=== PATIENT | female | born 1965 | race Caucasian/White ===

== ENCOUNTER → 2018-07-29 07:59 | Outpatient (CLI) | payer OTHER, SELFPAY ==
[2018-07-29 11:14] LABS: Vitamin D,25 Hydroxy 24.2 ng/mL (29.95-100.01)
[2018-07-29 11:16] LABS: Microalbumin,Random Urine 5.8 mg/L (NO RANGE EST.)
[2018-07-29 11:22] LABS: ALB/GLOB Ratio 1.1 RATIO (0.9-2.4); AST(SGOT) 17 U/L (15-37); Alanine Aminotransfer ALT/SGPT 40 U/L (13-56); Albumin, Serum 3.9 g/dL (3.2-5.0); Alkaline Phosphatase 79 U/L (45-117); Anion Gap 9 (5-15); BUN 13 mg/dL (7-18); BUN/Creat Ratio 22.2 RATIO (10-20); Calcium,Total 8.9 mg/dL (8.5-10.1); Chloride 102 mmol/L (98-107); Creatinine, Serum 0.58 mg/dL (0.55-1.02); EST Glomerular Filtration Rate 114 mL/min (>60); Est Glom Filt Rate - Afr Amer 137 mL/min (>60); Globulin 3.7 g/dL (2.2-4.2); Glucose 236 mg/dL (74-106); Potassium 4.1 mmol/L (3.5-5.1); Protein, Total 7.6 g/dL (6.4-8.2); Sodium Level 136 mmol/L (136-145); Thyroid Stim Hormone (TSH) 1.22 uIU/mL (0.358-3.74)
[2018-07-29 11:43] LABS: Hemoglobin A1c 10.7 % (4.2-6.3)
[2018-07-31 13:52] LABS: C-Peptide 2.9 ng/mL (1.1-4.4)
== END ==
PROVIDERS: Family Provider Family Medicine; PCP Family Medicine; Referring Provider Internal Medicine Endocrinology, Diabetes & Metabolism; Visit Provider Internal Medicine Endocrinology, Diabetes & Metabolism
DX: E11.9 Type 2 diabetes mellitus without complications (principal); E55.9 Vitamin D deficiency, unspecified
CPT/HCPCS: 36415; 80053; 82043; 82306; 82570; 83036; 84443; 84681

== ENCOUNTER → 2018-08-04 07:34 | Outpatient (CLI) | payer OTHER, SELFPAY | PROVIDERS: Family Provider Family Medicine; PCP Family Medicine; Referring Provider Internal Medicine Endocrinology, Diabetes & Metabolism; Visit Provider Internal Medicine Endocrinology, Diabetes & Metabolism | DX: E11.65 Type 2 diabetes mellitus with hyperglycemia (principal) | CPT/HCPCS: 36415; 82533 ==

== ENCOUNTER → 2019-01-07 10:19 | Outpatient (CLI) | payer OTHER, SELFPAY ==
[2017-06-06 12:36] VITALS: BMI 32.1
[2019-01-07 11:38] LABS: Hemoglobin A1c 7.1 % (4.2-6.3)
[2019-01-07 12:01] LABS: ALB/GLOB Ratio 1.1 RATIO (0.9-2.4); AST(SGOT) 16 U/L (15-37); Alanine Aminotransfer ALT/SGPT 29 U/L (13-56); Albumin, Serum 3.9 g/dL (3.2-5.0); Alkaline Phosphatase 78 U/L (45-117); Anion Gap 6 (5-15); BUN 16 mg/dL (7-18); BUN/Creat Ratio 23.9 RATIO (10-20); Calcium,Total 8.8 mg/dL (8.5-10.1); Chloride 107 mmol/L (98-107); Cholesterol 170 mg/dL (200); Creatinine, Serum 0.67 mg/dL (0.55-1.02); EST Glomerular Filtration Rate 97 mL/min (>60); Est Glom Filt Rate - Afr Amer 117 mL/min (>60); Globulin 3.6 g/dL (2.2-4.2); Glucose 150 mg/dL (74-106); High Density Lipoprotein 57 mg/dL; Potassium 4.9 mmol/L (3.5-5.1); Protein, Total 7.5 g/dL (6.4-8.2); Sodium Level 143 mmol/L (136-145); Thyroid Stim Hormone (TSH) 1.11 uIU/mL (0.358-3.74); Triglycerides 87 mg/dL; Very Low Density Lipoprotein 17 mg/dL (5-40)
[2019-01-09 09:22] LABS: Vitamin D,25 Hydroxy 68.5 ng/mL (29.95-100.01)
== END ==
PROVIDERS: Family Provider Family Medicine; PCP Family Medicine; Referring Provider Internal Medicine Endocrinology, Diabetes & Metabolism; Visit Provider Internal Medicine Endocrinology, Diabetes & Metabolism
DX: E11.65 Type 2 diabetes mellitus with hyperglycemia (principal)
CPT/HCPCS: 36415; 80053; 80061; 82306; 83036; 84443

== ENCOUNTER → 2019-04-14 07:18 | Outpatient (CLI) | payer OTHER, SELFPAY ==
[2017-06-06 12:36] VITALS: BMI 32.1
[2019-04-14 08:22] LABS: Hemoglobin A1c 8.6 % (4.2-6.3)
[2019-04-14 08:46] LABS: AST(SGOT) 15 U/L (15-37); Alanine Aminotransfer ALT/SGPT 28 U/L (13-56); Albumin, Serum 3.5 g/dL (3.2-5.0); Alkaline Phosphatase 78 U/L (45-117); Anion Gap 9 (5-15); BUN 16 mg/dL (7-18); BUN/Creat Ratio 26.1 RATIO (10-20); Calcium,Total 8.7 mg/dL (8.5-10.1); Chloride 106 mmol/L (98-107); Creatinine, Serum 0.61 mg/dL (0.55-1.02); EST Glomerular Filtration Rate 107 mL/min (>60); Est Glom Filt Rate - Afr Amer 130 mL/min (>60); Globulin 3.6 g/dL (2.2-4.2); Glucose 197 mg/dL (74-106); Potassium 4.3 mmol/L (3.5-5.1); Protein, Total 7.1 g/dL (6.4-8.2); Sodium Level 140 mmol/L (136-145)
== END ==
PROVIDERS: Family Provider Family Medicine; PCP Family Medicine; Referring Provider Internal Medicine Endocrinology, Diabetes & Metabolism; Visit Provider Internal Medicine Endocrinology, Diabetes & Metabolism
DX: E11.65 Type 2 diabetes mellitus with hyperglycemia (principal)
CPT/HCPCS: 36415; 80053; 83036

== ENCOUNTER → 2019-07-15 09:47 | Outpatient (CLI) | payer OTHER, SELFPAY ==
[2017-06-06 12:36] VITALS: BMI 32.1
[2019-07-15 11:03] LABS: ALB/GLOB Ratio 0.9 RATIO (0.9-2.4); AST(SGOT) 15 U/L (15-37); Alanine Aminotransfer ALT/SGPT 30 U/L (13-56); Albumin, Serum 3.6 g/dL (3.2-5.0); Alkaline Phosphatase 96 U/L (45-117); Anion Gap 10 (5-15); BUN 11 mg/dL (7-18); BUN/Creat Ratio 15.3 RATIO (10-20); Calcium,Total 8.9 mg/dL (8.5-10.1); Chloride 104 mmol/L (98-107); Cholesterol 189 mg/dL (200); Creatinine, Serum 0.72 mg/dL (0.55-1.02); EST Glomerular Filtration Rate 89 mL/min (>60); Est Glom Filt Rate - Afr Amer 108 mL/min (>60); Glucose 295 mg/dL (74-106); High Density Lipoprotein 56 mg/dL; Potassium 4.3 mmol/L (3.5-5.1); Protein, Total 7.6 g/dL (6.4-8.2); Sodium Level 140 mmol/L (136-145); Triglycerides 112 mg/dL; Very Low Density Lipoprotein 22 mg/dL (5-40)
[2019-07-15 11:06] LABS: Hemoglobin A1c 9.8 % (4.2-6.3)
== END ==
PROVIDERS: Family Provider Family Medicine; PCP Family Medicine; Referring Provider Internal Medicine Endocrinology, Diabetes & Metabolism; Visit Provider Internal Medicine Endocrinology, Diabetes & Metabolism
DX: M79.7 Fibromyalgia (principal)
CPT/HCPCS: 36415; 80053; 80061; 83036

== ENCOUNTER → 2019-11-21 07:53 | Outpatient (CLI) | payer OTHER, SELFPAY ==
[2017-06-06 12:36] VITALS: BMI 32.1
[2019-11-21 08:39] LABS: Hemoglobin A1c 7.7 % (4.2-6.3)
[2019-11-21 09:21] LABS: AST(SGOT) 12 U/L (15-37); Alanine Aminotransfer ALT/SGPT 28 U/L (13-56); Albumin, Serum 3.8 g/dL (3.2-5.0); Alkaline Phosphatase 79 U/L (45-117); Anion Gap 5 (5-15); BUN 16 mg/dL (7-18); Calcium,Total 9.5 mg/dL (8.5-10.1); Chloride 104 mmol/L (98-107); Cholesterol 194 mg/dL (200); Creatinine, Serum 0.73 mg/dL (0.55-1.02); EST Glomerular Filtration Rate 88 mL/min (>60); Est Glom Filt Rate - Afr Amer 107 mL/min (>60); Glucose 174 mg/dL (74-106); High Density Lipoprotein 54 mg/dL; Potassium 4.7 mmol/L (3.5-5.1); Protein, Total 7.8 g/dL (6.4-8.2); Sodium Level 138 mmol/L (136-145); Thyroid Stim Hormone (TSH) 2.05 uIU/mL (0.358-3.74); Triglycerides 104 mg/dL; Very Low Density Lipoprotein 21 mg/dL (5-40)
== END ==
PROVIDERS: PCP Family Medicine; Referring Provider Internal Medicine Endocrinology, Diabetes & Metabolism; Visit Provider Internal Medicine Endocrinology, Diabetes & Metabolism
DX: I10 Essential (primary) hypertension (principal); E11.65 Type 2 diabetes mellitus with hyperglycemia
CPT/HCPCS: 36415; 80053; 80061; 83036; 84443

== ENCOUNTER → 2020-03-13 09:29 | Outpatient (CLI) | payer OTHER, SELFPAY ==
[2020-03-13 11:01] LABS: ALB/GLOB Ratio 0.9 RATIO (0.9-2.4); AST(SGOT) 24 U/L (15-37); Alanine Aminotransfer ALT/SGPT 45 U/L (13-56); Albumin, Serum 3.8 g/dL (3.2-5.0); Alkaline Phosphatase 64 U/L (45-117); Anion Gap 6 (5-15); BUN 19 mg/dL (7-18); Calcium,Total 9.2 mg/dL (8.5-10.1); Chloride 103 mmol/L (98-107); Creatinine, Serum 0.63 mg/dL (0.55-1.02); EST Glomerular Filtration Rate 103 mL/min (>60); Est Glom Filt Rate - Afr Amer 125 mL/min (>60); Globulin 4.1 g/dL (2.2-4.2); Glucose 146 mg/dL (74-106); Potassium 4.2 mmol/L (3.5-5.1); Protein, Total 7.9 g/dL (6.4-8.2); Sodium Level 137 mmol/L (136-145)
[2020-03-13 11:25] LABS: Hemoglobin A1c 8.1 % (3.8-5.6)
== END ==
PROVIDERS: PCP Family Medicine; Referring Provider Internal Medicine Endocrinology, Diabetes & Metabolism; Visit Provider Internal Medicine Endocrinology, Diabetes & Metabolism
DX: I10 Essential (primary) hypertension (principal)
CPT/HCPCS: 36415; 80053; 83036

== ENCOUNTER → 2020-04-01 10:30 | Outpatient (CLI) | payer OTHER, SELFPAY ==
--- NOTE | 2020-04-01 10:38 | MRI_ITS ---
STUDY: MRI RIGHT SHOULDER REASON FOR EXAM: Chronic right shoulder, scapular, proximal humeral pain for 20 years, limited range of motion, no specific injury. TECHNIQUE: Standardized fat and water weighted pulse sequences were obtained in all 3 orthogonal planes. COMPARISON: None. FINDINGS: There is mild supraspinatus tendinosis and a very small intrasubstance partial thickness tear of the distal anterior supraspinatus tendon at the greater tuberosity insertion (T2 coronal image 15) measuring 0.2 cm in length. Normal infraspinatus tendon. Normal subscapularis tendon. Normal teres minor tendon. Normal supraspinatus muscle. Normal infraspinatus muscle. Normal subscapularis muscle. Normal teres minor muscle. Normal glenohumeral articulation. There is mild bone edema and cystic change of the greater tuberosity. Normal biceps labral complex. Normal intracapsular long biceps tendon. Normal labrum. Normal capsulo- ligamentous complex. There is no substantial acromioclavicular arthrosis. There is a Type II morphology (curved), with an anterior downsloping orientation. There is no subacromial-subdeltoid bursal fluid. Normal visualized coracohumeral and coracoacromial ligaments. Normal deltoid muscle. Normal trapezius muscle. MRI/Upper Ext Joint Only(Routine) IMPRESSION: Very small intrasubstance partial-thickness tear and mild tendinosis of the supraspinatus tendon. Electronically Signed: Dustin Wells MD at 11:31 EDT Tel , Service support ,
== END ==
PROVIDERS: PCP Family Medicine; Referring Provider Family Medicine; Visit Provider Family Medicine
DX: M25.511 Pain in right shoulder (principal)
CPT/HCPCS: 73221

== ENCOUNTER → 2020-07-10 09:31 | Outpatient (CLI) | payer OTHER, SELFPAY ==
[2020-07-10 10:48] LABS: Microalbumin,Random Urine < 5.0 mg/L (NO RANGE EST.)
[2020-07-10 10:58] LABS: Vitamin D,25 Hydroxy 40.6 ng/mL
[2020-07-10 11:07] LABS: Hemoglobin A1c 6.4 % (3.8-5.6)
[2020-07-10 11:09] LABS: ALB/GLOB Ratio 0.9 RATIO (0.9-2.4); AST(SGOT) 11 U/L (15-37); Alanine Aminotransfer ALT/SGPT 23 U/L (13-56); Albumin, Serum 3.8 g/dL (3.2-5.0); Alkaline Phosphatase 73 U/L (45-117); Anion Gap 6 (5-15); BUN 21 mg/dL (7-18); BUN/Creat Ratio 33.1 RATIO (10-20); Calcium,Total 9.3 mg/dL (8.5-10.1); Chloride 104 mmol/L (98-107); Cholesterol 210 mg/dL (200); Creatinine, Serum 0.63 mg/dL (0.55-1.02); EST Glomerular Filtration Rate 103 mL/min (>60); Est Glom Filt Rate - Afr Amer 124 mL/min (>60); Globulin 4.4 g/dL (2.2-4.2); Glucose 148 mg/dL (74-106); High Density Lipoprotein 57 mg/dL; Potassium 4.3 mmol/L (3.5-5.1); Protein, Total 8.2 g/dL (6.4-8.2); Sodium Level 137 mmol/L (136-145); Thyroid Stim Hormone (TSH) 2.04 uIU/mL (0.358-3.74); Triglycerides 131 mg/dL; Very Low Density Lipoprotein 26 mg/dL (5-40)
== END ==
PROVIDERS: PCP Family Medicine; Referring Provider Internal Medicine Endocrinology, Diabetes & Metabolism; Visit Provider Internal Medicine Endocrinology, Diabetes & Metabolism
DX: E11.65 Type 2 diabetes mellitus with hyperglycemia (principal); I10 Essential (primary) hypertension; M79.7 Fibromyalgia; E55.9 Vitamin D deficiency, unspecified
CPT/HCPCS: 36415; 80053; 80061; 82043; 82306; 83036; 84443

== ENCOUNTER 2020-08-26 06:44 | Day surgery (SDC) | payer OTHER, SELFPAY ==
[2020-08-26 07:16] VITALS: BP 126/80; PULSE 88; RESP 16; TEMP 36.9; O2SAT 97; BMI 31.1
[2020-08-26] MEDS: Lactated Ringers 1,000 ML 100 ML IV (07:39)
[2020-08-26 07:45] LABS: Bedside Glucose 184 mg/dL (70-110)
--- NOTE | 2020-08-26 08:10 | RAD_ITS ---
PROCEDURE: Right C4-C7 cervical facet injection. DATE OF EXAMINATION: 08/26/2020. INDICATION: Female, 55 years old. Chronic neck pain. FLUOROSCOPY TIME (if supplied): (9.8 seconds) minutes/seconds. 4 intraoperative views were obtained for right C4-C7 facet joint injection. RAD/Cerv Spine 4 or 5 Views IMPRESSION: Intraoperative imaging provided for right C4-C7 facet joint injection. Electronically Signed: Juan Carlos Sen, at 9:01 EST , Service support ,
[2020-08-26] MEDS: Bupivacaine 0.25% 30 ML Vial (08:28)
[2020-08-26] MEDS: MethylPREDNISolone Acetate 40 MG/ML Vial IM (08:28)
[2020-08-26 08:35] VITALS: BP 126/80; BP 94/68; PULSE 87; RESP 16; TEMP 36.8; O2SAT 96
[2020-08-26 08:40] VITALS: BP 126/80; BP 94/68; PULSE 84; RESP 16; O2SAT 96
[2020-08-26 08:45] VITALS: BP 104/72; BP 126/80; PULSE 84; RESP 16; O2SAT 97
[2020-08-26 08:50] VITALS: BP 103/72; BP 126/80; PULSE 83; RESP 16; TEMP 36.4; O2SAT 96
[2020-08-26 09:05] VITALS: BP 126/80
--- NOTE | 2020-08-26 14:32 | OP.PCM_ITS ---
Report of Operation Date of Procedure: 08/26/20 Description of Surgical Findings:: PREOPERATIVE DIAGNOSIS: Cervical spondylosis, cervical degenerative disc disease, cervical facet arthropathy POSTOPERATIVE DIAGNOSIS: Cervical spondylosis, cervical degenerative disc disease, cervical facet arthropathy PROCEDURE PERFORMED: Right-sided cervical facet steroid injection, C4, C5, C6, and C7. ANESTHESIA: MAC. BLOOD LOSS: Minimal. COMPLICATIONS: None. DESCRIPTION OF PROCEDURE: History and physical of today was reviewed. Risks and benefits of the procedure were explained. The patient understood and agreed to proceed. Informed consent was obtained. IV inserted per routine protocol. The patient was taken to the operating room and placed in the prone position with a pillow positioned underneath the chest. The neck area was prepped and draped in a sterile fashion using iodine x3. Under fluoroscopy guidance on an AP view, the C4 through C7 vertebral bodies were visualized at approximately 10- degree angle, starting on the Right C4, ending on the Right C7, passing through the C5 and C6. Using a 25-gauge 3-1/2-inch spinal needle, the needle was advanced via the skin. The tip of the needle was maneuvered and directed towards the epiphyseal junction of each corresponding vertebra. Once the tip of the needle was at the vicinity of the medial branch, the needle was pulled approximately 2 mm off the bone. After negative aspiration of blood or CSF and confirmation on AP, oblique as well as lateral view, a total of 4 mL of preservative-free 0.25% Marcaine with 80 mg of Depo-Medrol was injected in divided doses between those four levels. The needles were then removed intact. The patient experienced no sign or symptoms of intrathecal or intravascular injection. The patient experienced no paresthesia. The procedure was completed without any apparent difficulty or any complications. The patient appeared to tolerate it well. ASSESSMENT AND PLAN: This is a 55-year-old female with cervical spondylosis, cervical degenerative disc disease, cervical facet arthropathy status post right-sided cervical facet steroid injection C4-C7, patient will continue her current medications, patient will follow up in approximately 2 weeks for reevaluation.
== END 2020-08-26 09:18 | disposition home or self-care (01) ==
LOC: SDC 06:44 → AC 06:47
PROVIDERS: PCP Family Medicine; Referring Provider Anesthesiology Pain Medicine; Visit Provider Anesthesiology Pain Medicine
PROC: 3E0U3BZ Introduction of Anesthetic Agent into Joints, Percutaneous Approach (ICD-10-PCS; CPT 64490; principal; 2020-08-26 08:05)
DX: M47.812 Spondylosis without myelopathy or radiculopathy, cervical region (principal); M50.30 Other cervical disc degeneration, unspecified cervical region; M46.92 Unspecified inflammatory spondylopathy, cervical region; G89.29 Other chronic pain; I10 Essential (primary) hypertension; E11.9 Type 2 diabetes mellitus without complications; Z79.4 Long term (current) use of insulin; Z86.73 Personal history of transient ischemic attack (TIA), and cerebral infarction without residual deficits
CPT/HCPCS: 01992; 64491; 64492; 64490; 72050; 82962; J7120

== ENCOUNTER → 2020-12-16 08:19 | Outpatient (CLI) | payer OTHER, SELFPAY ==
[2020-12-16 09:11] LABS: Hemoglobin A1c 7.7 % (3.8-5.6)
[2020-12-16 09:24] LABS: ALB/GLOB Ratio 1.1 RATIO (0.9-2.4); AST(SGOT) 15 U/L (15-37); Alanine Aminotransfer ALT/SGPT 30 U/L (13-56); Alkaline Phosphatase 67 U/L (45-117); Anion Gap 5 (5-15); BUN 17 mg/dL (7-18); BUN/Creat Ratio 24.7 RATIO (10-20); Calcium,Total 9.4 mg/dL (8.5-10.1); Chloride 102 mmol/L (98-107); Creatinine, Serum 0.69 mg/dL (0.55-1.02); EST Glomerular Filtration Rate 93 mL/min (>60); Est Glom Filt Rate - Afr Amer 113 mL/min (>60); Globulin 3.8 g/dL (2.2-4.2); Glucose 196 mg/dL (74-106); Potassium 3.8 mmol/L (3.5-5.1); Protein, Total 7.8 g/dL (6.4-8.2); Sodium Level 138 mmol/L (136-145); Thyroid Stim Hormone (TSH) 2.09 uIU/mL (0.358-3.74)
== END ==
PROVIDERS: PCP Family Medicine; Referring Provider Internal Medicine Endocrinology, Diabetes & Metabolism; Visit Provider Internal Medicine Endocrinology, Diabetes & Metabolism
DX: E11.65 Type 2 diabetes mellitus with hyperglycemia (principal)
CPT/HCPCS: 36415; 80053; 83036; 84443

== ENCOUNTER → 2021-01-02 17:16 | Outpatient (CLI) | payer OTHER, SELFPAY ==
[2021-01-02 17:30] LABS: Hematocrit 46.7 % (37-47); Hemoglobin 15.5 g/dL (12.0-15.0); Mean Corp Hgb Conc 33.2 g/dL (32-36); Mean Corpuscular Hgb 29.4 pg (27.0-32.0); Mean Corpuscular Volume 88.4 fL (81-99); Mean Platelet Vol. 9.3 fl (6.2-12.0); Platelet Count 395 K/mm3 (150-450); RBC Distribution Width CV 12.4 % (11.6-14.6); RBC Distribution Width SD 40.9 fl (35.1-43.9); Red Blood Count 5.28 M/mm3 (4.2-5.4); White Blood Count 10.4 K/mm3 (4.4-11.0)
[2021-01-02 18:03] LABS: Free T3 3.1 pg/mL (2.18-3.98)
== END ==
PROVIDERS: PCP Family Medicine; Referring Provider Family Medicine; Visit Provider Family Medicine
DX: E04.1 Nontoxic single thyroid nodule (principal)
CPT/HCPCS: 36415; 84436; 84481; 85027

== ENCOUNTER → 2021-03-19 | Outpatient (CLI) | payer OTHER, SELFPAY | END | disposition home or self-care (01) | PROVIDERS: PCP Family Medicine; Referring Provider Nurse Practitioner Family; Visit Provider Nurse Practitioner Family | DX: R30.0 Dysuria (principal) | CPT/HCPCS: 87086; 87088 ==

== ENCOUNTER → 2021-04-02 13:28 | Outpatient (CLI) | payer OTHER, SELFPAY ==
--- NOTE | 2021-04-02 13:31 | US_ITS ---
STUDY: THYROID ULTRASOUND REASON FOR EXAM: Female, 55 years old. Thyroid Nodule TECHNIQUE: Ultrasound evaluation of the thyroid was performed with real-time and static choi-scale imaging. COMPARISON: None. FINDINGS: RIGHT LOBE: The right lobe of the thyroid gland measures 4.3 x 1.5 x 1.9 cm. There is a homogeneous echotexture. Several small sub-5 mm thyroid cysts, likely colloid cysts. LEFT LOBE: The left lobe of the thyroid gland measures 4.1 x 1.3 x 1.8 cm. There is a homogeneous echotexture. Several small sub-5 mm cyst, likely colloid cysts. ISTHMUS: The isthmus measures 3 mm. The regional lymph nodes are normal. US/Thyroid IMPRESSION: Small sub-5 mm thyroid cysts bilaterally, likely colloid cysts. Otherwise unremarkable. Electronically Signed: Leo Gimenez DO at 1:55 EDT Tel , Service support ,
== END ==
PROVIDERS: PCP Family Medicine; Referring Provider Family Medicine; Visit Provider Family Medicine
DX: E04.1 Nontoxic single thyroid nodule (principal)
CPT/HCPCS: 76536

== ENCOUNTER → 2021-04-09 11:58 | Outpatient (CLI) | payer OTHER, SELFPAY ==
--- NOTE | 2021-04-09 12:11 | RAD_ITS ---
STUDY: X-RAY - PELVIS REASON FOR EXAM: Female, 55 years old. PSORIATIC ARTHROPATHY TECHNIQUE: One view of the pelvis was obtained. COMPARISON: None. FINDINGS: There is a non-specific bowel gas pattern. Normal visualized soft tissue structures. Normal bilateral iliac wings, sacroiliac joints and visualized sacrum. Normal visualized bilateral superior and inferior pubic rami. Normal pubic symphysis. Normal ischial tuberosities. Normal visualized right femoral head. Normal right acetabulum. Normal right hip joint. Normal visualized left femoral head. Normal left acetabulum. Normal left hip joint. RAD/Pelvis 1 or 2 Views IMPRESSION: Normal x-ray examination of the pelvis. Electronically Signed: Juan Carlos Sen MD at 15:24 EDT , Service support ,
--- NOTE | 2021-04-09 12:16 | US_ITS ---
STUDY: ABDOMINAL ULTRASOUND - RIGHT UPPER QUADRANT REASON FOR VISIT: Female, 55 years old ELEVATED ENZYMES -- S/P CHOLECYSTECTOMY TECHNIQUE: Ultrasound evaluation of the right upper quadrant was performed with real-time and static choi-scale imaging. TECHNICAL QUALITY: Adequate. COMPARISON: None. FINDINGS: Liver: The liver measures 14.7 cm. There is increased echogenicity consistent with fatty infiltration. The bile ducts are within normal limits. There is hepatic color flow. The direction of portal flow is hepatopetal. There is no demonstrated mass lesion. Gallbladder: The patient is status post cholecystectomy. Common Bile Duct (C.B.D.): The common bile duct measures 2.9 mm. Pancreas: Normal size of the head, body and tail of the pancreas. There is normal echogenicity of the pancreas. There is no demonstrated pancreatic mass or cyst. Right Kidney: Normal size of the right kidney. The right kidney measures 12 cm x 6.3 cm x 5.3 cm. Normal renal cortex. The right cortex measures cm. There is no demonstrated renal mass or cyst. There is no right hydronephrosis. US/Liver IMPRESSION: Fatty infiltration of the liver. The patient is status post cholecystectomy. Electronically Signed: Juan Carlos Sen MD at 13:19 EDT , Service support ,
[2021-04-09 13:44] LABS: Absolute Lymphocyte Count 2.67 X10^3/uL (0.83-4.51); Absolute Neutrophil Count 5.5 X10^3/uL (2.0-7.7); Basophil# 0.07 X10^3/uL; Basophil% 0.8 % (0-1); Eosinophils% 2.2 % (0-5); Hematocrit 46.2 % (37-47); Hemoglobin 15.1 g/dL (12.0-15.0); Lymphocyte # 2.67 X10^3/ul (0.83-4.51); Mean Corp Hgb Conc 32.7 g/dL (32-36); Mean Corpuscular Hgb 28.8 pg (27.0-32.0); Mean Corpuscular Volume 88.2 fL (81-99); Mean Platelet Vol. 9.7 fl (6.2-12.0); Monocyte# 0.77 X10^3/uL; Monocyte% 8.4 % (0-10); NRBC Flagged by Analyzer 0 % (0-5); Neutrophil # 5.45 X10^3/uL (2.7-7.7); Neutrophil % 59.2 % (47-70); Platelet Count 342 K/mm3 (150-450); RBC Distribution Width CV 12.6 % (11.6-14.6); RBC Distribution Width SD 40.6 fl (35.1-43.9); Red Blood Count 5.24 M/mm3 (4.2-5.4); White Blood Count 9.2 K/mm3 (4.4-11.0)
[2021-04-09 13:50] LABS: Erythrocyte Sedimentation Rate 6 mm/hr (0-30)
[2021-04-09 13:59] LABS: Hemoglobin A1c 10.1 % (3.8-5.6)
[2021-04-09 14:04] LABS: Microalbumin,Random Urine 5.7 mg/L (NO RANGE EST.); Microalbumin:Creatinine Ratio 11.4 mg/g CRE (<30 mg/g CRE)
[2021-04-09 14:24] LABS: AST(SGOT) 27 U/L (15-37); Alanine Aminotransfer ALT/SGPT 43 U/L (13-56); Albumin, Serum 3.8 g/dL (3.2-5.0); Alkaline Phosphatase 75 U/L (45-117); Anion Gap 5 (5-15); BUN 14 mg/dL (7-18); BUN/Creat Ratio 20.8 RATIO (10-20); Calcium,Total 9.1 mg/dL (8.5-10.1); Chloride 102 mmol/L (98-107); Cholesterol 231 mg/dL (200); Creatinine, Serum 0.67 mg/dL (0.55-1.02); EST Glomerular Filtration Rate 96 mL/min (>60); Est Glom Filt Rate - Afr Amer 116 mL/min (>60); Globulin 3.8 g/dL (2.2-4.2); Glucose 184 mg/dL (74-106); High Density Lipoprotein 54 mg/dL; Potassium 4.3 mmol/L (3.5-5.1); Protein, Total 7.6 g/dL (6.4-8.2); Rheumatoid Factor < 10.0 IU/mL (<15); Sodium Level 139 mmol/L (136-145); Triglycerides 139 mg/dL; Very Low Density Lipoprotein 28 mg/dL (5-40)
[2021-04-09 15:26] LABS: Hepatitis B Surface Antibody Reactive; Hepatitis B Surface Antigen Non-Reactive (Nonreactive); Hepatitis C Antibody Non-Reactive (Nonreactive); Vitamin D,25 Hydroxy 33.4 ng/mL
[2021-04-12 14:58] LABS: CCP IgG Antibodies 6 units (0-19)
== END ==
PROVIDERS: PCP Family Medicine; Referring Provider Internal Medicine Rheumatology; Visit Provider Internal Medicine Rheumatology
DX: L40.59 Other psoriatic arthropathy (principal); M79.7 Fibromyalgia; Q66.70 Congenital pes cavus, unspecified foot; E11.9 Type 2 diabetes mellitus without complications; I10 Essential (primary) hypertension; G47.33 Obstructive sleep apnea (adult) (pediatric); F41.9 Anxiety disorder, unspecified; Z86.73 Personal history of transient ischemic attack (TIA), and cerebral infarction without residual deficits
CPT/HCPCS: 36415; 72170; 76705; 80053; 80061; 82043; 82306; 82570; 83036; 85025; 85652; 86140; 86200; 86431; 86706; 86803; 87340

== ENCOUNTER → 2021-08-01 08:31 | Outpatient (CLI) | payer OTHER, SELFPAY ==
[2021-08-01 09:51] LABS: Absolute Lymphocyte Count 2.91 X10^3/uL (0.83-4.51); Basophil# 0.08 X10^3/uL; Basophil% 0.8 % (0-1); Eosinophil# 0.38 X10^3/uL; Eosinophils% 3.7 % (0-5); Hematocrit 46.2 % (37-47); Hemoglobin 15.1 g/dL (12.0-15.0); Lymphocyte # 2.91 X10^3/ul (0.83-4.51); Lymphocyte % 28.6 % (19-41); Mean Corp Hgb Conc 32.7 g/dL (32-36); Mean Corpuscular Volume 88.7 fL (81-99); Monocyte# 0.74 X10^3/uL; Monocyte% 7.3 % (0-10); NRBC Flagged by Analyzer 0 % (0-5); Neutrophil # 6.03 X10^3/uL (2.7-7.7); Neutrophil % 59.2 % (47-70); Platelet Count 400 K/mm3 (150-450); RBC Distribution Width CV 13.2 % (11.6-14.6); RBC Distribution Width SD 42.9 fl (35.1-43.9); Red Blood Count 5.21 M/mm3 (4.2-5.4); White Blood Count 10.2 K/mm3 (4.4-11.0)
[2021-08-01 10:07] LABS: ALB/GLOB Ratio 0.9 RATIO (0.9-2.4); AST(SGOT) 13 U/L (15-37); Alanine Aminotransfer ALT/SGPT 40 U/L (13-56); Albumin, Serum 3.8 g/dL (3.2-5.0); Alkaline Phosphatase 66 U/L (45-117); Anion Gap 10 (5-15); BUN 18 mg/dL (7-18); BUN/Creat Ratio 24.2 RATIO (10-20); Calcium,Total 9.6 mg/dL (8.5-10.1); Chloride 100 mmol/L (98-107); Creatinine, Serum 0.74 mg/dL (0.55-1.02); EST Glomerular Filtration Rate 85 mL/min (>60); Est Glom Filt Rate - Afr Amer 103 mL/min (>60); Globulin 4.1 g/dL (2.2-4.2); Glucose 155 mg/dL (74-106); Potassium 3.8 mmol/L (3.5-5.1); Protein, Total 7.9 g/dL (6.4-8.2); Sodium Level 136 mmol/L (136-145)
== END ==
PROVIDERS: PCP Internal Medicine Rheumatology; Referring Provider Internal Medicine Rheumatology; Visit Provider Internal Medicine Rheumatology
DX: L40.59 Other psoriatic arthropathy (principal); L40.8 Other psoriasis; M79.7 Fibromyalgia; Q66.70 Congenital pes cavus, unspecified foot; E11.9 Type 2 diabetes mellitus without complications; I10 Essential (primary) hypertension; G47.33 Obstructive sleep apnea (adult) (pediatric); F32.9 Major depressive disorder, single episode, unspecified; F41.9 Anxiety disorder, unspecified; K58.0 Irritable bowel syndrome with diarrhea; Z79.899 Other long term (current) drug therapy; Z86.73 Personal history of transient ischemic attack (TIA), and cerebral infarction without residual deficits
CPT/HCPCS: 36415; 80053; 85025

== ENCOUNTER 2022-01-13 07:43 | Outpatient (CLI) | payer OTHER, SELFPAY ==
[2022-01-13 08:09] LABS: Absolute Lymphocyte Count 2.61 X10^3/uL (0.83-4.51); Absolute Neutrophil Count 6.3 X10^3/uL (2.0-7.7); Basophil# 0.07 X10^3/uL; Basophil% 0.7 % (0-1); Eosinophil# 0.21 X10^3/uL; Eosinophils% 2.1 % (0-5); Hematocrit 45.8 % (37-47); Hemoglobin 15.7 g/dL (12.0-15.0); Lymphocyte # 2.61 X10^3/ul (0.83-4.51); Mean Corp Hgb Conc 34.3 g/dL (32-36); Mean Corpuscular Hgb 30.1 pg (27.0-32.0); Mean Corpuscular Volume 87.7 fL (81-99); Mean Platelet Vol. 9.3 fl (6.2-12.0); NRBC Flagged by Analyzer 0 % (0-5); Neutrophil # 6.33 X10^3/uL (2.7-7.7); Platelet Count 404 K/mm3 (150-450); RBC Distribution Width SD 41.8 fl (35.1-43.9); Red Blood Count 5.22 M/mm3 (4.2-5.4)
[2022-01-13 08:49] LABS: AST(SGOT) 13 U/L (15-37); Alanine Aminotransfer ALT/SGPT 27 U/L (13-56); Albumin, Serum 3.9 g/dL (3.2-5.0); Alkaline Phosphatase 83 U/L (45-117); Anion Gap 4 (5-15); BUN 17 mg/dL (7-18); BUN/Creat Ratio 21.3 RATIO (10-20); Calcium,Total 9.6 mg/dL (8.5-10.1); Chloride 102 mmol/L (98-107); Cholesterol 200 mg/dL (200); EST Glomerular Filtration Rate 78 mL/min (>60); Est Glom Filt Rate - Afr Amer 95 mL/min (>60); Globulin 3.9 g/dL (2.2-4.2); Glucose 169 mg/dL (74-106); High Density Lipoprotein 59 mg/dL; Potassium 4.4 mmol/L (3.5-5.1); Protein, Total 7.8 g/dL (6.4-8.2); Sodium Level 138 mmol/L (136-145); Thyroid Stim Hormone (TSH) 1.44 uIU/mL (0.358-3.74); Triglycerides 144 mg/dL; Very Low Density Lipoprotein 29 mg/dL (5-40)
[2022-01-13 08:57] LABS: Vitamin D,25 Hydroxy 81.1 ng/mL
[2022-01-13 09:22] LABS: Hemoglobin A1c 6.9 % (3.8-5.6)
== END 2022-01-13 23:59 | disposition home or self-care (01) ==
LOC: LAB 07:45
PROVIDERS: PCP Family Medicine; Referring Provider Internal Medicine Rheumatology; Visit Provider Internal Medicine Endocrinology, Diabetes & Metabolism
DX: E11.65 Type 2 diabetes mellitus with hyperglycemia (principal); L40.59 Other psoriatic arthropathy; L40.8 Other psoriasis; M79.7 Fibromyalgia; Q66.70 Congenital pes cavus, unspecified foot; I10 Essential (primary) hypertension; K58.0 Irritable bowel syndrome with diarrhea; G47.33 Obstructive sleep apnea (adult) (pediatric); F32.A Depression, unspecified; F41.9 Anxiety disorder, unspecified; Z79.899 Other long term (current) drug therapy; Z86.73 Personal history of transient ischemic attack (TIA), and cerebral infarction without residual deficits
CPT/HCPCS: 36415; 80053; 80061; 82043; 82306; 83036; 84443; 85025

== ENCOUNTER → 2022-03-20 | Outpatient (CLI) | payer OTHER, SELFPAY ==
[2022-03-20 09:51] LABS: Absolute Neutrophil Count 5.9 X10^3/uL (2.0-7.7); Eosinophil# 0.26 X10^3/uL; Eosinophils% 2.7 % (0-5); Hematocrit 45.6 % (37-47); Hemoglobin 14.8 g/dL (12.0-15.0); Lymphocyte % 25.2 % (19-41); Mean Corp Hgb Conc 32.5 g/dL (32-36); Mean Corpuscular Volume 89.4 fL (81-99); Mean Platelet Vol. 9.8 fl (6.2-12.0); Monocyte# 0.84 X10^3/uL; Monocyte% 8.8 % (0-10); NRBC Flagged by Analyzer 0 % (0-5); Neutrophil # 5.89 X10^3/uL (2.7-7.7); Neutrophil % 61.9 % (47-70); Platelet Count 420 K/mm3 (150-450); RBC Distribution Width CV 13.3 % (11.6-14.6); White Blood Count 9.5 K/mm3 (4.4-11.0)
[2022-03-20 10:15] LABS: ALB/GLOB Ratio 1.1 RATIO (0.9-2.4); AST(SGOT) 15 U/L (15-37); Alanine Aminotransfer ALT/SGPT 29 U/L (13-56); Alkaline Phosphatase 75 U/L (45-117); Anion Gap 5 (5-15); BUN 14 mg/dL (7-18); BUN/Creat Ratio 17.7 RATIO (10-20); Calcium,Total 9.3 mg/dL (8.5-10.1); Chloride 102 mmol/L (98-107); Creatinine, Serum 0.79 mg/dL (0.55-1.02); EST Glomerular Filtration Rate 79 mL/min (>60); Est Glom Filt Rate - Afr Amer 96 mL/min (>60); Globulin 3.8 g/dL (2.2-4.2); Glucose 183 mg/dL (74-106); Protein, Total 7.8 g/dL (6.4-8.2); Sodium Level 137 mmol/L (136-145)
== END | disposition home or self-care (01) ==
LOC: LAB 08:40
PROVIDERS: PCP Family Medicine; Referring Provider Internal Medicine Rheumatology; Visit Provider Internal Medicine Rheumatology
DX: L40.59 Other psoriatic arthropathy (principal); E11.9 Type 2 diabetes mellitus without complications; L40.8 Other psoriasis; M79.7 Fibromyalgia; Q66.70 Congenital pes cavus, unspecified foot; I10 Essential (primary) hypertension; G47.33 Obstructive sleep apnea (adult) (pediatric); F41.9 Anxiety disorder, unspecified; K58.0 Irritable bowel syndrome with diarrhea; Z79.899 Other long term (current) drug therapy; Z86.73 Personal history of transient ischemic attack (TIA), and cerebral infarction without residual deficits
CPT/HCPCS: 36415; 80053; 85025

== ENCOUNTER → 2022-05-18 | Outpatient (CLI) | payer OTHER, SELFPAY ==
[2022-05-18 09:30] LABS: Absolute Lymphocyte Count 2.66 X10^3/uL (0.83-4.51); Absolute Neutrophil Count 5.2 X10^3/uL (2.0-7.7); Basophil# 0.07 X10^3/uL; Basophil% 0.8 % (0-1); Eosinophil# 0.24 X10^3/uL; Eosinophils% 2.7 % (0-5); Hematocrit 43.1 % (37-47); Hemoglobin 14.4 g/dL (12.0-15.0); Lymphocyte # 2.66 X10^3/ul (0.83-4.51); Lymphocyte % 29.9 % (19-41); Mean Corp Hgb Conc 33.4 g/dL (32-36); Mean Corpuscular Hgb 30.2 pg (27.0-32.0); Mean Corpuscular Volume 90.4 fL (81-99); Mean Platelet Vol. 9.4 fl (6.2-12.0); Monocyte# 0.75 X10^3/uL; Monocyte% 8.4 % (0-10); NRBC Flagged by Analyzer 0 % (0-5); Neutrophil # 5.17 X10^3/uL (2.7-7.7); Platelet Count 481 K/mm3 (150-450); RBC Distribution Width CV 13.1 % (11.6-14.6); RBC Distribution Width SD 43.1 fl (35.1-43.9); Red Blood Count 4.77 M/mm3 (4.2-5.4); White Blood Count 8.9 K/mm3 (4.4-11.0)
[2022-05-18 10:10] LABS: ALB/GLOB Ratio 0.9 RATIO (0.9-2.4); AST(SGOT) 15 U/L (15-37); Alanine Aminotransfer ALT/SGPT 28 U/L (13-56); Albumin, Serum 3.6 g/dL (3.2-5.0); Alkaline Phosphatase 66 U/L (45-117); Anion Gap 5 (5-15); BUN 15 mg/dL (7-18); BUN/Creat Ratio 20.6 RATIO (10-20); Calcium,Total 9.9 mg/dL (8.5-10.1); Chloride 101 mmol/L (98-107); Creatinine, Serum 0.73 mg/dL (0.55-1.02); EST Glomerular Filtration Rate 87 mL/min (>60); Est Glom Filt Rate - Afr Amer 106 mL/min (>60); Globulin 4.1 g/dL (2.2-4.2); Glucose 139 mg/dL (74-106); Potassium 4.1 mmol/L (3.5-5.1); Protein, Total 7.7 g/dL (6.4-8.2); Sodium Level 138 mmol/L (136-145)
== END | disposition home or self-care (01) ==
PROVIDERS: PCP Family Medicine; Referring Provider Internal Medicine Rheumatology; Visit Provider Internal Medicine Rheumatology
DX: L40.59 Other psoriatic arthropathy (principal); E11.9 Type 2 diabetes mellitus without complications; Z79.899 Other long term (current) drug therapy; L40.8 Other psoriasis; M79.7 Fibromyalgia; Q66.70 Congenital pes cavus, unspecified foot; I10 Essential (primary) hypertension; G47.33 Obstructive sleep apnea (adult) (pediatric); F41.9 Anxiety disorder, unspecified; Z86.73 Personal history of transient ischemic attack (TIA), and cerebral infarction without residual deficits; K58.0 Irritable bowel syndrome with diarrhea
CPT/HCPCS: 36415; 80053; 85025

== ENCOUNTER → 2022-07-22 | Outpatient (CLI) | payer OTHER, SELFPAY ==
[2022-07-22 09:52] LABS: Microalbumin,Random Urine 5.6 mg/L (NO RANGE EST.); Microalbumin:Creatinine Ratio 6.7 mg/g CRE (<30 mg/g CRE)
[2022-07-22 09:57] LABS: Hemoglobin A1c 7.3 % (3.8-5.6)
[2022-07-22 10:08] LABS: Vitamin D,25 Hydroxy 81.3 ng/mL
[2022-07-22 10:12] LABS: AST(SGOT) 13 U/L (15-37); Alanine Aminotransfer ALT/SGPT 27 U/L (13-56); Albumin, Serum 3.8 g/dL (3.2-5.0); Alkaline Phosphatase 85 U/L (45-117); Anion Gap 6 (5-15); BUN 18 mg/dL (7-18); Calcium,Total 9.6 mg/dL (8.5-10.1); Chloride 103 mmol/L (98-107); Creatinine, Serum 0.78 mg/dL (0.55-1.02); EST Glomerular Filtration Rate 80 mL/min (>60); Est Glom Filt Rate - Afr Amer 97 mL/min (>60); Glucose 206 mg/dL (74-106); Potassium 4.4 mmol/L (3.5-5.1); Protein, Total 7.8 g/dL (6.4-8.2); Sodium Level 139 mmol/L (136-145); Thyroid Stim Hormone (TSH) 1.57 uIU/mL (0.358-3.74)
== END | disposition home or self-care (01) ==
LOC: LAB 08:34
PROVIDERS: PCP Family Medicine; Visit Provider Internal Medicine Endocrinology, Diabetes & Metabolism
DX: E11.65 Type 2 diabetes mellitus with hyperglycemia (principal); I10 Essential (primary) hypertension; E55.9 Vitamin D deficiency, unspecified; E66.9 Obesity, unspecified; M79.7 Fibromyalgia
CPT/HCPCS: 36415; 80053; 82043; 82306; 82570; 83036; 84443

== ENCOUNTER → 2022-09-21 | Outpatient (CLI) | payer OTHER, SELFPAY ==
[2022-09-21 12:51] LABS: Erythrocyte Sedimentation Rate 7 mm/hr (0-30)
[2022-09-21 13:15] LABS: Vitamin B12 > 2000 pg/mL (211-911)
[2022-09-21 13:33] LABS: AST(SGOT) 26 U/L (15-37); Alanine Aminotransfer ALT/SGPT 42 U/L (13-56); Alkaline Phosphatase 76 U/L (45-117); Anion Gap 8 (5-15); BUN 15 mg/dL (7-18); BUN/Creat Ratio 19.8 RATIO (10-20); CRP < 2.90 mg/L (0.0-3.0); Calcium,Total 9.6 mg/dL (8.5-10.1); Chloride 100 mmol/L (98-107); Creatinine, Serum 0.76 mg/dL (0.55-1.02); EST Glomerular Filtration Rate 83 mL/min (>60); Est Glom Filt Rate - Afr Amer 100 mL/min (>60); Glucose 135 mg/dL (74-106); Potassium 4.1 mmol/L (3.5-5.1); Sodium Level 136 mmol/L (136-145)
[2022-09-26 12:08] LABS: PROEL- A/G Ratio 1.1 (0.7-1.7); PROEL- Albumin 3.9 g/dL (2.9-4.4); PROEL- Alpha-1 Globulin 0.3 g/dL (0.0-0.4); PROEL- Alpha-2 Globulin 0.9 g/dL (0.4-1.0); PROEL- Beta Globulin 1.1 g/dL (0.7-1.3); PROEL- Gamma Globulin 1.4 g/dL (0.4-1.8); PROEL- Globulin, Total 3.6 g/dL (2.2-3.9); PROEL- TOTAL PROTEIN 7.5 g/dL (6.0-8.5)
[2022-09-29 11:49] LABS: Arsenic 7245 < 1 ug/L (0-9); Lead, Blood < 1.0 ug/dL (0.0-3.4); Mercury, Blood 85324 < 1.0 ug/L (0.0-14.9); Protein S, Free 106 % (61-136); Protein S, Total 128 % (60-150)
== END | disposition home or self-care (01) ==
LOC: LAB 12:17
PROVIDERS: PCP Family Medicine; Referring Provider Psychiatry & Neurology Neurology; Visit Provider Psychiatry & Neurology Neurology
DX: G62.9 Polyneuropathy, unspecified (principal)
CPT/HCPCS: 36415; 80053; 82175; 82607; 83655; 83825; 84165; 84166; 85305; 85306; 85652; 86140; 86335

== ENCOUNTER → 2022-12-08 | Outpatient (CLI) | payer OTHER, SELFPAY ==
[2022-12-08 08:09] LABS: Absolute Lymphocyte Count 2.32 X10^3/uL (0.83-4.51); Absolute Neutrophil Count 4.7 X10^3/uL (2.0-7.7); Basophil# 0.08 X10^3/uL; Eosinophil# 0.21 X10^3/uL; Eosinophils% 2.6 % (0-5); Hematocrit 45.8 % (37-47); Hemoglobin 14.8 g/dL (12.0-15.0); Lymphocyte # 2.32 X10^3/ul (0.83-4.51); Lymphocyte % 28.2 % (19-41); Mean Corp Hgb Conc 32.3 g/dL (32-36); Mean Corpuscular Hgb 28.8 pg (27.0-32.0); Mean Corpuscular Volume 89.1 fL (81-99); Mean Platelet Vol. 9.7 fl (6.2-12.0); Monocyte# 0.92 X10^3/uL; Monocyte% 11.2 % (0-10); NRBC Flagged by Analyzer 0 % (0-5); Neutrophil # 4.67 X10^3/uL (2.7-7.7); Neutrophil % 56.8 % (47-70); Platelet Count 334 K/mm3 (150-450); RBC Distribution Width CV 13.2 % (11.6-14.6); RBC Distribution Width SD 43.5 fl (35.1-43.9); Red Blood Count 5.14 M/mm3 (4.2-5.4); White Blood Count 8.2 K/mm3 (4.4-11.0)
[2022-12-08 08:34] LABS: ALB/GLOB Ratio 0.9 RATIO (0.9-2.4); AST(SGOT) 19 U/L (15-37); Alanine Aminotransfer ALT/SGPT 30 U/L (13-56); Albumin, Serum 3.6 g/dL (3.2-5.0); Alkaline Phosphatase 83 U/L (45-117); Anion Gap 8 (5-15); BUN 17 mg/dL (7-18); BUN/Creat Ratio 20.3 RATIO (10-20); Bilirubin, Direct 0.19 mg/dL (0.00-0.30); Calcium,Total 9.1 mg/dL (8.5-10.1); Chloride 100 mmol/L (98-107); Creatinine, Serum 0.84 mg/dL (0.55-1.02); EST Glomerular Filtration Rate 74 mL/min (>60); Est Glom Filt Rate - Afr Amer 89 mL/min (>60); Globulin 3.9 g/dL (2.2-4.2); Glucose 177 mg/dL (74-106); Potassium 3.9 mmol/L (3.5-5.1); Protein, Total 7.5 g/dL (6.4-8.2); Sodium Level 138 mmol/L (136-145)
[2022-12-08 08:42] LABS: Hemoglobin A1c 7.5 % (3.8-5.6)
== END | disposition home or self-care (01) ==
PROVIDERS: PCP Family Medicine; Referring Provider Internal Medicine Endocrinology, Diabetes & Metabolism; Visit Provider Internal Medicine Endocrinology, Diabetes & Metabolism
DX: E11.65 Type 2 diabetes mellitus with hyperglycemia (principal); I10 Essential (primary) hypertension; E55.9 Vitamin D deficiency, unspecified; E66.9 Obesity, unspecified; M79.7 Fibromyalgia
CPT/HCPCS: 36415; 80053; 82248; 83036; 85025

== ENCOUNTER → 2023-01-04 | Outpatient (CLI) | payer OTHER, SELFPAY ==
[2023-01-04 13:33] LABS: Absolute Lymphocyte Count 2.69 X10^3/uL (0.83-4.51); Absolute Neutrophil Count 5.8 X10^3/uL (2.0-7.7); Basophil# 0.12 X10^3/uL; Basophil% 1.2 % (0-1); Eosinophil# 0.18 X10^3/uL; Eosinophils% 1.8 % (0-5); Hematocrit 50.5 % (37-47); Hemoglobin 16.9 g/dL (12.0-15.0); Lymphocyte # 2.69 X10^3/ul (0.83-4.51); Lymphocyte % 27.1 % (19-41); Mean Corp Hgb Conc 33.5 g/dL (32-36); Mean Corpuscular Hgb 29.1 pg (27.0-32.0); Mean Corpuscular Volume 87.1 fL (81-99); Mean Platelet Vol. 10.4 fl (6.2-12.0); Monocyte# 1.13 X10^3/uL; Monocyte% 11.4 % (0-10); NRBC Flagged by Analyzer 0 % (0-5); Neutrophil # 5.75 X10^3/uL (2.7-7.7); Neutrophil % 57.9 % (47-70); Platelet Count 373 K/mm3 (150-450); RBC Distribution Width CV 12.8 % (11.6-14.6); RBC Distribution Width SD 39.9 fl (35.1-43.9); White Blood Count 9.9 K/mm3 (4.4-11.0)
[2023-01-04 14:10] LABS: AST(SGOT) 24 U/L (15-37); Alanine Aminotransfer ALT/SGPT 44 U/L (13-56); Alkaline Phosphatase 88 U/L (45-117); Bilirubin, Direct 0.11 mg/dL (0.00-0.30); Creatinine, Serum 0.72 mg/dL (0.55-1.02); EST Glomerular Filtration Rate 88 mL/min (>60); Est Glom Filt Rate - Afr Amer 107 mL/min (>60)
== END | disposition home or self-care (01) ==
LOC: LAB 12:23
PROVIDERS: PCP Family Medicine; Referring Provider Internal Medicine Rheumatology; Visit Provider Internal Medicine Rheumatology
DX: M79.10 Myalgia, unspecified site (principal)
CPT/HCPCS: 36415; 80076; 82565; 85025

== ENCOUNTER → 2023-03-09 | Outpatient (CLI) | payer OTHER, SELFPAY ==
[2023-03-09 08:30] LABS: Basophil% 1.2 % (0-1); Eosinophils% 3.5 % (0-5); Hematocrit 44.8 % (37-47); Hemoglobin 14.8 g/dL (12.0-15.0); Mean Corpuscular Volume 87.7 fL (81-99); Mean Platelet Vol. 10.5 fl (6.2-12.0); Monocyte# 1.28 X10^3/uL; Monocyte% 14.7 % (0-10); NRBC Flagged by Analyzer 0 % (0-5); Neutrophil # 4.97 X10^3/uL (2.7-7.7); Neutrophil % 57.1 % (47-70); Platelet Count 420 K/mm3 (150-450); RBC Distribution Width CV 13.5 % (11.6-14.6); RBC Distribution Width SD 42.7 fl (35.1-43.9); Red Blood Count 5.11 M/mm3 (4.2-5.4); White Blood Count 8.7 K/mm3 (4.4-11.0)
[2023-03-09 08:46] LABS: ALB/GLOB Ratio 0.9 RATIO (0.9-2.4); AST(SGOT) 51 U/L (15-37); Alanine Aminotransfer ALT/SGPT 65 U/L (13-56); Albumin, Serum 3.5 g/dL (3.2-5.0); Alkaline Phosphatase 68 U/L (45-117); BUN 12 mg/dL (7-18); BUN/Creat Ratio 18.4 RATIO (10-20); Calcium,Total 9.5 mg/dL (8.5-10.1); Chloride 103 mmol/L (98-107); Cholesterol 196 mg/dL (200); Creatinine, Serum 0.65 mg/dL (0.55-1.02); EST Glomerular Filtration Rate 99 mL/min (>60); Est Glom Filt Rate - Afr Amer 119 mL/min (>60); Globulin 3.8 g/dL (2.2-4.2); Glucose 147 mg/dL (74-106); Potassium 4.4 mmol/L (3.5-5.1); Protein, Total 7.3 g/dL (6.4-8.2); Sodium Level 140 mmol/L (136-145); Triglycerides 199 mg/dL
[2023-03-09 08:47] LABS: Anion Gap 8 (5-15); High Density Lipoprotein 49 mg/dL; Very Low Density Lipoprotein 40 mg/dL (5-40)
[2023-03-09 08:51] LABS: Microalbumin,Random Urine 6.7 mg/L (NO RANGE EST.); Microalbumin:Creatinine Ratio 7.6 mg/g CRE (<30 mg/g CRE)
== END | disposition home or self-care (01) ==
LOC: LAB 07:44
PROVIDERS: PCP Family Medicine; Visit Provider Family Medicine
DX: R74.8 Abnormal levels of other serum enzymes (principal)
CPT/HCPCS: 36415; 80053; 80061; 82043; 82570; 85025

== ENCOUNTER → 2023-04-06 | Outpatient (CLI) | payer OTHER, SELFPAY ==
[2023-04-06 09:03] LABS: Vitamin D,25 Hydroxy 120.5 ng/mL
[2023-04-06 09:15] LABS: ALB/GLOB Ratio 1.1 RATIO (0.9-2.4); AST(SGOT) 42 U/L (15-37); Alanine Aminotransfer ALT/SGPT 68 U/L (13-56); Albumin, Serum 3.9 g/dL (3.2-5.0); Alkaline Phosphatase 68 U/L (45-117); Anion Gap 8 (5-15); BUN 21 mg/dL (7-18); BUN/Creat Ratio 28.5 RATIO (10-20); Calcium,Total 9.3 mg/dL (8.5-10.1); Chloride 103 mmol/L (98-107); Creatinine, Serum 0.74 mg/dL (0.55-1.02); EST Glomerular Filtration Rate 86 mL/min (>60); Est Glom Filt Rate - Afr Amer 104 mL/min (>60); Globulin 3.6 g/dL (2.2-4.2); Glucose 188 mg/dL (74-106); Protein, Total 7.5 g/dL (6.4-8.2); Sodium Level 138 mmol/L (136-145); Thyroid Stim Hormone (TSH) 1.77 uIU/mL (0.358-3.74)
[2023-04-06 11:50] LABS: Hemoglobin A1c 7.1 % (3.8-5.6)
== END | disposition home or self-care (01) ==
LOC: LAB 07:59
PROVIDERS: PCP Family Medicine; Visit Provider Internal Medicine Endocrinology, Diabetes & Metabolism
DX: I10 Essential (primary) hypertension (principal); E11.65 Type 2 diabetes mellitus with hyperglycemia; E55.9 Vitamin D deficiency, unspecified; M79.7 Fibromyalgia
CPT/HCPCS: 36415; 80053; 82306; 83036; 84443

== ENCOUNTER → 2023-08-04 | Outpatient (CLI) | payer OTHER, SELFPAY ==
[2023-08-04 09:26] LABS: Vitamin D,25 Hydroxy 49.5 ng/mL
[2023-08-04 09:28] LABS: Hemoglobin A1c 7.2 % (3.8-5.6)
[2023-08-04 09:32] LABS: ALB/GLOB Ratio 0.9 RATIO (0.9-2.4); AST(SGOT) 20 U/L (15-37); Alanine Aminotransfer ALT/SGPT 48 U/L (13-56); Albumin, Serum 3.6 g/dL (3.2-5.0); Alkaline Phosphatase 64 U/L (45-117); Anion Gap 5 (5-15); BUN 19 mg/dL (7-18); BUN/Creat Ratio 25.3 RATIO (10-20); Bilirubin, Direct 0.21 mg/dL (0.00-0.30); Calcium,Total 9.2 mg/dL (8.5-10.1); Chloride 103 mmol/L (98-107); Cholesterol 217 mg/dL (200); Creatinine, Serum 0.75 mg/dL (0.55-1.02); EST Glomerular Filtration Rate 84 mL/min (>60); Est Glom Filt Rate - Afr Amer 101 mL/min (>60); Globulin 3.9 g/dL (2.2-4.2); Glucose 179 mg/dL (74-106); High Density Lipoprotein 62 mg/dL; Protein, Total 7.5 g/dL (6.4-8.2); Sodium Level 137 mmol/L (136-145); Thyroid Stim Hormone (TSH) 2.97 uIU/mL (0.358-3.74); Triglycerides 167 mg/dL; Very Low Density Lipoprotein 33 mg/dL (5-40)
== END | disposition home or self-care (01) ==
LOC: LAB 08:22
PROVIDERS: PCP Family Medicine; Referring Provider Internal Medicine Rheumatology; Visit Provider Internal Medicine Endocrinology, Diabetes & Metabolism
DX: R74.8 Abnormal levels of other serum enzymes (principal)
CPT/HCPCS: 36415; 80053; 80061; 82248; 82306; 83036; 84443

== ENCOUNTER → 2023-12-06 | Outpatient (CLI) | payer OTHER, SELFPAY ==
--- OUTSIDE RECORDS SUMMARY | 2023-12-06 11:32 | XMS RPT_ITS | CCD ---
Author Name Unknown Address [address] [place] [address] Organization [facility] Care Team Providers Care Hair Tinter Name Role Phone Aly Hubbard Primary Care Provider Results Test Name Value Interpretation Reference Range Facil ity Encounters Encounter Date Encounter Type Care Provider Facility Start: 06-27-2004 End: 06-27-2004 Patient encounter procedure Armen Bonds Work Phone: [facility] Start: 06-27-2004 Results Only Armen Marcos arian Bonds Work Phone: [facility] Procedures Date Procedure Procedure Detail Performing Clinician Start: 06-27-2004 CONVERTED SURGICAL PATHOLOGY Armen Bonds Work Phone: Payers Date Payer Category Payer Private Health Insurance [employer] PPO [id number] 1999-2009 [id number] Social History Date Type Detail Facility Tobacco smoking status NHIS Unknown if ev er smoked [facility] Sex Assigned At Not on file [facility] Additional Source Comments Source Comments (unrecognize d section and content) In the event this informatio n is protected by the Federal Confidentiality of Alcohol and Drug Abuse Patient Records regulations: The Federal rules restrict any use of the information to criminally investigate or prosecute any alcohol or drug abuse patient.[facility] FOR RECORDS PERTAINING TO PATIENTS WHO ARE OR HAVE BEEN ENROLLED IN A CHEMICAL DEPENDENCY/SUBSTANCEABUSE PROGRAM, SOME INFORMATION MAY BE OMITTED. This clinical summary was aggregated from multiple sources. Caution should be exercised in using it in the provision of clinical care. This summary normalizes information from multiple sources, and as a consequence, information in this document may materially change the coding, format and clinical context of patient data. In addition, data may be omitted in some cases. CLINICAL DECISIONS SHOULD BE BASED ON THE PRIMARY CLINICAL RECORDS. [facility]. provides no warranty or guarantee of the accuracy or completeness of information in this document.
[2023-12-06 14:16] LABS: Cholesterol 195 mg/dL (200); High Density Lipoprotein 56 mg/dL; Triglycerides 124 mg/dL; Very Low Density Lipoprotein 25 mg/dL (5-40)
== END | disposition home or self-care (01) ==
LOC: LAB 11:16
PROVIDERS: PCP Family Medicine; Referring Provider Internal Medicine Endocrinology, Diabetes & Metabolism; Visit Provider Internal Medicine Endocrinology, Diabetes & Metabolism
DX: E11.65 Type 2 diabetes mellitus with hyperglycemia (principal); I10 Essential (primary) hypertension; M79.7 Fibromyalgia; E55.9 Vitamin D deficiency, unspecified; E66.9 Obesity, unspecified
CPT/HCPCS: 36415; 80061

== ENCOUNTER → 2024-05-10 | Outpatient (CLI) | payer OTHER, SELFPAY ==
--- NOTE | 2024-05-10 15:45 | RAD_ITS ---
STUDY: X-RAY - CERVICAL SPINE REASON FOR EXAM: Female, 58 years old. Neck pain TECHNIQUE: 5 view(s) of the cervical spine were obtained. COMPARISON: 11/19/2015 FINDINGS: Normal anterior atlantoaxial articulation. Normal odontoid process. Normal cervical lordosis. Normal vertebral bodies and endplates. Normal disc space heights. Normal visualized intervertebral neuroforamina. The soft tissue structures are unremarkable. RAD/Cerv Spine 4 or 5 Views IMPRESSION: Normal x-ray examination of the visualized cervical spine. Electronically Signed: Omar Browne MD at 8:38 EDT ,
== END | disposition home or self-care (01) ==
LOC: MTRAD 15:44
PROVIDERS: PCP Family Medicine; Referring Provider Family Medicine; Visit Provider Family Medicine
DX: M54.12 Radiculopathy, cervical region (principal)
CPT/HCPCS: 72050

== ENCOUNTER → 2024-07-03 | Outpatient (CLI) | payer OTHER, SELFPAY ==
[2024-07-03 08:56] LABS: Hematocrit 45.4 % (37-47); Hemoglobin 14.7 g/dL (12.0-15.0); Mean Corp Hgb Conc 32.4 g/dL (32-36); Mean Corpuscular Hgb 28.8 pg (27.0-32.0); Mean Platelet Vol. 9.5 fl (6.2-12.0); Platelet Count 338 K/mm3 (150-450); RBC Distribution Width CV 13.5 % (11.6-14.6); RBC Distribution Width SD 44.1 fl (35.1-43.9); White Blood Count 9.7 K/mm3 (4.4-11.0)
[2024-07-03 09:29] LABS: Vitamin D,25 Hydroxy 35.1 ng/mL
[2024-07-03 09:33] LABS: ALB/GLOB Ratio 0.9 RATIO (0.9-2.4); AST(SGOT) 18 U/L (15-37); Alanine Aminotransfer ALT/SGPT 30 U/L (13-56); Albumin, Serum 3.3 g/dL (3.2-5.0); Alkaline Phosphatase 76 U/L (45-117); Anion Gap 4 (5-15); BUN 13 mg/dL (7-18); BUN/Creat Ratio 19.5 RATIO (10-20); Calcium,Total 9.1 mg/dL (8.5-10.1); Chloride 103 mmol/L (98-107); Cholesterol 181 mg/dL (200); Creatinine, Serum 0.67 mg/dL (0.55-1.02); EST Glomerular Filtration Rate 96 mL/min (>60); Est Glom Filt Rate - Afr Amer 116 mL/min (>60); Free T3 2.7 pg/mL (2.18-3.98); Globulin 3.7 g/dL (2.2-4.2); Glucose 136 mg/dL (74-106); Hemoglobin A1c 6.8 % (3.8-5.6); High Density Lipoprotein 55 mg/dL; Potassium 4.6 mmol/L (3.5-5.1); Sodium Level 137 mmol/L (136-145); T4 Free Direct 1.06 ng/dL (0.76-1.46); Triglycerides 139 mg/dL; Uric Acid 3.4 mg/dL (2.6-6.0); Very Low Density Lipoprotein 28 mg/dL (5-40)
== END | disposition home or self-care (01) ==
LOC: LAB 08:13
PROVIDERS: PCP Family Medicine; Referring Provider Internal Medicine Endocrinology, Diabetes & Metabolism; Visit Provider Internal Medicine Endocrinology, Diabetes & Metabolism
DX: E11.65 Type 2 diabetes mellitus with hyperglycemia (principal); I10 Essential (primary) hypertension; E66.9 Obesity, unspecified; M79.7 Fibromyalgia; E55.9 Vitamin D deficiency, unspecified
CPT/HCPCS: 36415; 80053; 80061; 82306; 83036; 84439; 84443; 84481; 84550; 85027

== ENCOUNTER → 2024-07-04 | Outpatient (CLI) | payer OTHER, SELFPAY ==
[2024-07-04 11:38] LABS: Microalbumin,Random Urine < 5.0 mg/L (NO RANGE EST.)
== END | disposition home or self-care (01) ==
LOC: LAB 09:20
PROVIDERS: PCP Family Medicine; Referring Provider Internal Medicine Endocrinology, Diabetes & Metabolism; Visit Provider Internal Medicine Endocrinology, Diabetes & Metabolism
DX: I10 Essential (primary) hypertension (principal); E11.65 Type 2 diabetes mellitus with hyperglycemia; M79.7 Fibromyalgia; E55.9 Vitamin D deficiency, unspecified; E66.9 Obesity, unspecified
CPT/HCPCS: 82043; 82570

== ENCOUNTER → 2024-08-30 | Outpatient (CLI) | payer OTHER, SELFPAY ==
[2024-09-07 11:09] LABS: HPV APTIMA, High Risk Negative (Negative)
== END | disposition home or self-care (01) ==
LOC: BWCLAB 13:46
PROVIDERS: PCP Family Medicine; Referring Provider Obstetrics & Gynecology; Visit Provider Obstetrics & Gynecology
DX: Z12.4 Encounter for screening for malignant neoplasm of cervix (principal)
CPT/HCPCS: 87624; 88175; G0145

== ENCOUNTER → 2024-11-01 | Outpatient (CLI) | payer OTHER, SELFPAY | END | disposition home or self-care (01) | LOC: LABSPEC 16:43 | PROVIDERS: PCP Family Medicine; Referring Provider Obstetrics & Gynecology; Visit Provider Obstetrics & Gynecology | DX: R30.0 Dysuria (principal) | CPT/HCPCS: 87077; 87086; 87088; 87186 ==

== ENCOUNTER → 2024-11-06 | Outpatient (CLI) | payer OTHER, SELFPAY ==
[2024-11-06 11:04] LABS: ALB/GLOB Ratio 0.8 RATIO (0.9-2.4); AST(SGOT) 20 U/L (15-37); Alanine Aminotransfer ALT/SGPT 29 U/L (13-56); Albumin, Serum 3.5 g/dL (3.2-5.0); Alkaline Phosphatase 99 U/L (45-117); Anion Gap 6 (5-15); BUN 16 mg/dL (7-18); Calcium,Total 9.3 mg/dL (8.5-10.1); Chloride 103 mmol/L (98-107); Creatinine, Serum 0.73 mg/dL (0.55-1.02); EST Glomerular Filtration Rate 86 mL/min (>60); Est Glom Filt Rate - Afr Amer 105 mL/min (>60); Free T3 3.1 pg/mL (2.18-3.98); Globulin 4.2 g/dL (2.2-4.2); Glucose 205 mg/dL (74-106); Potassium 4.2 mmol/L (3.5-5.1); Protein, Total 7.7 g/dL (6.4-8.2); Sodium Level 136 mmol/L (136-145)
[2024-11-06 11:24] LABS: Hemoglobin A1c 7.5 % (3.8-5.6)
[2024-11-06 14:27] LABS: Vitamin D,25 Hydroxy 46.7 ng/mL
== END | disposition home or self-care (01) ==
LOC: LAB 09:38
PROVIDERS: PCP Family Medicine; Referring Provider Internal Medicine Endocrinology, Diabetes & Metabolism; Visit Provider Internal Medicine Endocrinology, Diabetes & Metabolism
DX: I10 Essential (primary) hypertension (principal); E11.65 Type 2 diabetes mellitus with hyperglycemia; E55.9 Vitamin D deficiency, unspecified; E66.9 Obesity, unspecified; M79.7 Fibromyalgia
CPT/HCPCS: 36415; 80053; 82306; 83036; 84439; 84443; 84481

== ENCOUNTER → 2024-11-07 | Outpatient (CLI) | payer OTHER, SELFPAY ==
--- NOTE | 2024-11-07 15:01 | US_ITS ---
INDICATION: pre op EXAMINATION: Ultrasound US Pelvis Non OB Limited With Transvaginal Imaging TECHNIQUE: Transabdominal and transvaginal (for optimal evaluation of the adnexa) pelvic ultrasound was performed. Grayscale, spectral waveform, and color flow Doppler evaluation of the adnexa. COMPARISON: No relevant prior comparison study available FINDINGS: UTERUS: The uterus measures 7.1 x 4.0 x 4.9 cm. There is no uterine mass. The endometrial stripe measures 4.9 mm in AP diameter which is within normal limits. Within the endometrial cavity there is a simple appearing 0.5 x 0.4 x 0.4 cm round anechoic focus. RIGHT OVARY: 1.5 x 0.9 x 2.0 cm. Non-enlarged, normal echogenicity. There is normal arterial inflow and venous outflow present in the right ovary. LEFT OVARY: There is nonvisualization of the left ovary. FREE FLUID: None. The urinary bladder volume measures 278 cc and is within normal limits. US/Pelvic w/ Transvaginal IMPRESSION: 0.5 x 0.4 x 0.4 cm anechoic focus within the endometrial cavity, may reflect an endometrial cyst or focal fluid. Nonvisualization of the left ovary secondary to overlying bowel gas. Electronically Signed: Jessica Arana MD at 9:10 EST ,
== END | disposition home or self-care (01) ==
LOC: US 14:59
PROVIDERS: PCP Family Medicine; Referring Provider Obstetrics & Gynecology; Visit Provider Obstetrics & Gynecology
DX: N99.3 Prolapse of vaginal vault after hysterectomy (principal); R10.2 Pelvic and perineal pain
CPT/HCPCS: 76830; 76856

== ENCOUNTER → 2024-11-14 | Outpatient (CLI) | payer OTHER, SELFPAY ==
--- NOTE | 2024-11-14 | EMB_PTH ---
PATIENT: JESSICA MORTON LOC: [facility] U#:[id number] AGE/SX: 59/F ROOM: RE11/14/[address]: JUDY Greenwood : 1965 BED: DIS: 11/14/2024 SPEC #: [id number] RECD: 11/14/24 16:58 STATUS: SD NINA #: [id number] GERRY: 11/14/24 00:[address]: Elisabet Maria NP DEPT: SURGICAL PATHOLOGY RECD BY: Nina Nowak ENTERED: 11/15/24 08:47 SP TYPE: ENDOM BX/C PIOTR DR: Wander Mccullough MD Tissues: Endometrium, NOS Procedures: Surgery Specimen Level IV HEADER OPERATION: Endometrial biopsy PRE-OP DIAGNOSIS: Cystic ultrasound TISSUE SUBMITTED: Endometrial lining MICROSCOPIC DIAGNOSIS Endometrial biopsy: Scant fragment of benign endocervical epithelium and mucous. See cordell. [email or web address].mr 11/16/2024 COMMENT Endometrial tissue is not identified in the specimen. Correlation with clinical findings and appropriate follow up are necessary. Re-biopsy is suggested if clinically indicated. MICROSCOPIC DESCRIPTION Slides are reviewed. GROSS DESCRIPTION Received is one container labeled with the patient's name and not further designated. The specimen consists of multiple irregular fragments of pink mucoid tissue that in aggregate measure 2.5 x 2 x 0.2 cm. The specimen is totally submitted in one cassette. 11/15/2024 TC: Can not code CPT:91626
== END | disposition home or self-care (01) ==
LOC: LABSPEC 16:33
PROVIDERS: PCP Family Medicine; Referring Provider Nurse Practitioner Women's Health; Visit Provider Nurse Practitioner Women's Health
DX: R30.0 Dysuria (principal)
CPT/HCPCS: 87086; 87088; 88305

== ENCOUNTER → 2024-11-22 | Outpatient (CLI) | payer OTHER, SELFPAY | END | disposition home or self-care (01) | LOC: LABSPEC 12:04 | PROVIDERS: PCP Family Medicine; Referring Provider Nurse Practitioner Family; Visit Provider Nurse Practitioner Family | DX: R30.0 Dysuria (principal) | CPT/HCPCS: 87077; 87086; 87088; 87186 ==

== ENCOUNTER 2024-12-01 08:38 | Observation (INO) | payer OTHER, SELFPAY ==
--- NOTE | 2024-11-29 11:49 | EKG12_ITS ---
Test Reason : PRE OP Blood Pressure : */* mmHG Vent. Rate : 92 BPM Atrial Rate : 92 BPM P-R Int : 174 ms QRS Dur : 80 ms QT Int : 344 ms P-R-T Axes : 41 51 60 degrees QTcB Int : 425 ms Normal sinus rhythm Low voltage QRS Borderline ECG Confirmed by TAMIKA WESLEY, CONNIE ([id number]), editorial writer LENKA CASEY ([id number]) on 11/30/2024 6:57:45 AM Referred By: Meghan Avery Confirmed By: CONNIE LUNDBERG MD
[2024-11-29 13:04] LABS: Hematocrit 45.2 % (37-47); Hemoglobin 14.9 g/dL (12.0-15.0); Mean Corpuscular Hgb 28.8 pg (27.0-32.0); Mean Corpuscular Volume 87.4 fL (81-99); Mean Platelet Vol. 9.8 fl (6.2-12.0); Platelet Count 385 K/mm3 (150-450); RBC Distribution Width CV 13.3 % (11.6-14.6); RBC Distribution Width SD 42.8 fl (35.1-43.9); Red Blood Count 5.17 M/mm3 (4.2-5.4); White Blood Count 9.3 K/mm3 (4.4-11.0)
[2024-11-29 13:36] LABS: Anion Gap 7 (5-15); BUN 13 mg/dL (7-18); BUN/Creat Ratio 15.8 RATIO (10-20); Calcium,Total 9.7 mg/dL (8.5-10.1); Chloride 100 mmol/L (98-107); Creatinine, Serum 0.82 mg/dL (0.55-1.02); EST Glomerular Filtration Rate 75 mL/min (>60); Est Glom Filt Rate - Afr Amer 91 mL/min (>60); Glucose 223 mg/dL (74-106); Magnesium 2.2 mg/dL (1.6-2.6); Potassium 4.1 mmol/L (3.5-5.1); Sodium Level 136 mmol/L (136-145)
[2024-11-29 14:11] LABS: Hemoglobin A1c 7.1 % (3.8-5.6)
--- NOTE | 2024-11-30 10:39 | PAT.ANE_ITS ---
Pre-Assessment Diagnosis/Proposed Procedure Planned Operative Procedure(s): (B) Hysterectomy,Total Vaginal, Bilateral Salpingectomy (B) Repair, Anterior & Posterior Bilateral SSLF with Dermis Possible Sling Bilateral Ureteral Catheterization Anesthesia History Anesthesia History - director of primary care: Anesthesia History - director of primary care Hx Hospitalization No 11/17/24 14:05 Any Problems With Anesthesia Yes: NAUSEA 11/17/24 14:05 Cholinesterase deficiency No 11/17/24 14:05 You/Your Family Experience No 11/17/24 14:05 fever (hyperthermia) with Relationship Recent Exposure to Contagious No 11/01/24 11:19 Disease Does patient have nerve No 11/17/24 14:05 stimulator Patient instructed to have device shut off --Does patient have Pacemaker or ICD? When Was Last Pacemaker Check QUESTION #4 FULL TEXT: You/Your Family Experience fever (hyperthermia) with Anesthesia Last Oral Intake Last Oral intake: Last Oral Intake NPO since Meds taken in AM with sips of water? Meds patient instructed to take am of surgery PONV PONV - director of primary care: PONV - director of primary care Female Yes 11/17/24 14:05 HX of Motion Sickness Yes 11/17/24 14:05 HX of N/V After Surgery Yes 11/17/24 14:05 Non-Smoker Yes 11/17/24 14:05 Duration of Surgery greater Yes 11/17/24 14:05 than 60 minutes Number of Risk Factors 5 11/17/24 14:05 PONV Score Severe Risk 11/17/24 14:05 Height & Weight Height & Weight: Anesthesia: Height & Weight Height 5 ft 6 in 11/01/24 15:37 Respiratory Assessment Respiratory Assessment - director of primary care: Respiratory Tract Infection Hx - director of primary care Hx Respiratory Tract Infection No 11/17/24 14:05 STOP Sleep Apnea STOP Sleep Apnea - director of primary care: STOP Sleep Apnea - director of primary care Hx Hypertension Yes 11/17/24 14:05 Hx Sleep Apnea No 11/17/24 14:05 CPAP BIPAP Do you snore loudly (louder No 11/17/24 14:05 than talking or can be heard Do you often feel tired/ No 11/17/24 14:05 fatigued/ sleepy during daytime? Has anyone observed you stop No 11/17/24 14:05 breathing during sleep? STOP Results Negative 11/17/24 14:05 QUESTION #5 FULL TEXT : Do you snore loudly (louder than talking or can be heard through closed doors)? 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 Specify any problems Hx of Preganancy in last 3 No 11/17/24 14:05 Months Nurse Filling Out Transfusion VLEHZUMBROTA 11/17/24 14:05 & Questions: Date: 11/17/24 11/17/24 14:05 Time: 14:15 11/17/24 14:05 Patient unable to answer at this time (ie. confused, unrespo /Reproduction History /Reproductive History - director of primary care: /Reproductive Hx- director of primary care Hx Now Gestational Age (in weeks): EDC: Hx Hx Para Hx Section SAB No 11/01/24 15:44 PFSH Medical History (Updated 11/27/24 @ 12:04 by Cari Taylor) History of ESBL Klebsiella pneumoniae infection Wears contact lenses Wears glasses Marijuana use Insulin dependent diabetes mellitus Diabetes Restless legs Gastric reflux Non-smoker Stroke GERD (gastroesophageal reflux disease) Pancreatitis Hypertension Diabetes Arthritis Home Medications ?Medication ?Instructions ?Recorded ?Last Taken ?Type duloxetine 60 mg capsule,delayed 30 mg PO DAILY Unknown History release empagliflozin 25 mg tablet 25 mg PO QAM 08/30/24 Unkno wn History (Jardiance) eszopiclone 2 mg tablet (Lunesta) 2 mg PO QHS 08/30/24 Unknown History insulin lispro protamine-lispro 20 unit subcut BID 04/17 Unknown History 100 unit/mL (50-50) subcutaneous susp (Humalog Mix 50-50 Insuln U-100) mecobalamin (vitamin B12) 500 mcg 1,000 mcg PO DAILY 1 10/30/23 Unknown History chewable tablet tirzepatide 7.5 mg/0.5 mL 7.5 mg subcut QWEEK 08/30/24 11/16/24 History subcutaneous pen injector (Rene) cod liver oil 5 ml PO QDAY 08/31/24 Unknow n History olmesartan 40 mg tablet (Benicar) 20 mg PO DAILY 08/31 Unknown History rabeprazole 20 mg tablet,delayed 20 mg PO BID 08/31/24 Unknown History release estradiol 0.01% (0.1 mg/gram) 1 g vaginal .3XW 5 Unknown History vaginal cream CBD Oral (INFORMATIONAL USE 11/17/24 Unknown Histo ry ONLY-PT USES ORAL CBD) cefdinir 300 mg capsule 300 mg PO BID #5 caps Unknown Rx Allergy/AdvReac Type Severity Reaction Status Date / Time ketoconazole Allergy Unknown Other Verified 11/22/24 10:30 Sulfa (Sulfonamide Allergy Itching Verified 11/22/24 10:30 Antibiotics) Family History Mother CAD (coronary artery disease) CVA (cerebral vascular accident) Diabetes Endometriosis Heart disease Hypertension Myocardial infarction Father CAD (coronary artery disease) CVA (cerebral vascular accident) Diabetes Heart disease Hypertension Myocardial infarction Brother CAD (coronary artery disease) CVA (cerebral vascular accident) Diabetes Hypertension Sister Diabetes Endometriosis Hypertension Other Kidney disease Seizures Surgical History (Updated 11/17/24 @ 14:06 by Renee Bonds) History of ankle surgery H/O abdominoplasty H/O rhinoplasty Hx of breast reduction, elective History of cholecystectomy Hx of tonsillectomy Social History household members: spouse housing: house number of children: 2 current occupational status: unemployed Smoking Status: Never smoker alcohol intake: current alcohol intake frequency: holidays/special occasions only substance use type: other details: medical marijuana card seatbelt use: always do you feel safe at home: Yes additional social history: - Ashu Audit: Pertinent Findings Pertinent Findings EKG Perinent findings: November 29, 2024. Normal sinus rhythm. Recommendation Anesthesia Recommendation Anesthesia recommendation: OPTIMIZED for anesthesia
[2024-12-01] VITALS (12 sets, daily range): BP systolic 104–138; BP diastolic 60–83; PULSE 70–93; RESP 14–16; TEMP 36.2–36.9; O2SAT 95–100; BMI 33.0
[2024-12-01] MEDS: Gabapentin 600 MG Tablet PO (06:16)
[2024-12-01] MEDS: Scopolamine 1mg/72hr Patch 1 PATCH TD (06:16)
[2024-12-01] MEDS: Enoxaparin 40 MG/0.4 ML Syringe SC (06:16)
[2024-12-01] MEDS: Acetaminophen 500 MG Tablet 1000 MG PO (06:16)
[2024-12-01] MEDS: Celecoxib 200 MG Capsule 400 MG PO (06:16)
[2024-12-01] MEDS: Lactated Ringers 1,000 ML 40 ML IV (06:17)
[2024-12-01] MEDS: Magnesium 1 GM over 15 mins IV (06:17)
[2024-12-01] MEDS: Insulin Lispro 100 UNIT/ML INSULN.PEN SC (06:18)
--- NOTE | 2024-12-01 06:42 | PCM.PRE.AN2 ---
ASA Classification* ASA Classification ASA Classification: 2 Assessment & Plan Anesthesia* Anesthesia Assessment Anesthesia Assessment: Discussed sedation and/or anesthesia options, risks, benefits, and alternatives with patient/parents/legal guardian/POA. Questions invited. The patient/parents/legal guardian/POA seems to understand and agrees to proceed with anesthesia plan. Reviewed the physical assessment, medical history, allergy history and patient home medications list prior to surgery/procedure/anesthetic and documented any changes. Performed airway and anesthesia risk assessments. Anesthesia Type Anesthesia Type: General Anesthesia Focused Assessment* Temperature: 98.4 F Pulse Rate: 93 Blood Pressure: 138/70 Respiratory Rate: 16 Pulse Ox: 95 Airway Assessment Mouth opens: >3 cm Mallampati Score: II Focused Labs Anesthesia Preop lab: CBC WBC 9.3 K/mm3 (4.4-11.0) 11/29/24 12:11/29/24 RBC 5.17 M/mm3 (4.2-5.4) 11/29/24 12:11/29/24 Hgb 14.9 g/dL (12.0-15.0) 11/29/24 12:11/29/24 Hct 45.2 % (37-47) 11/29/24 12:11/29/24 Plt Count 385 K/mm3 (150-450) 11/29/24 12:11/29/24 CHEMISTRY Potassium 4.1 mmol/L (3.5-5.1) 11/29/24 12:11/29/24 Sodium 136 mmol/L (136-145) 11/29/24 12:11/29/24 Magnesium 2.2 mg/dL (1.6-2.6) 11/29/24 12:11/29/24 BUN 13 mg/dL (7-18) 11/29/24 12:11/29/24 Creatinine 0.82 mg/dL (0.55-1.02) 11/29/24:11/29/24 Glucose 223 mg/dL (74-106) H 11/29/24 12:34 11/29/24 POC Glucose 184 mg/dL (70-110) H 08/26/20 07:39 08/26/20 TSH 2.160 uIU/mL (0.358-3.740) 11/06/24 09:48 11/06/24 COAG PT 12.9 SECONDS (11.9-14.4) 10/21/13 16:10 10/21/13 Pre-Assessment Diagnosis/Proposed Procedure Planned Operative Procedure(s): (B) Hysterectomy,Total Vaginal, Bilateral Salpingectomy (B) Repair, Anterior & Posterior Bilateral SSLF with Dermis Possible Sling Bilateral Ureteral Catheterization Anesthesia History Anesthesia History - staff veterinarian: Anesthesia History - staff veterinarian Hx Hospitalization No 11/17/24 14:05 Any Problems With Anesthesia Yes: NAUSEA 11/17/24 14:05 Cholinesterase deficiency No 11/17/24 14:05 You/Your Family Experience No 11/17/24 14:05 fever (hyperthermia) with Relationship Recent Exposure to Contagious No 12/01/24 06:08 Disease Does patient have nerve No 11/17/24 14:05 stimulator Patient instructed to have device shut off --Does patient have Pacemaker No 12/01/24 06:08 or ICD? When Was Last Pacemaker Check QUESTION #4 FULL TEXT: You/Your Family Experience fever (hyperthermia) with Anesthesia Last Oral Intake Last Oral intake: Last Oral Intake NPO since 03:30 12/01/24 06:08 Meds taken in AM with sips of Yes 12/01/24 06:08 water? Meds patient instructed to pt had gatorade per 12/01/24 06:08 take am of surgery terrence PONV PONV - staff veterinarian: PONV - staff veterinarian Female Yes 11/17/24 14:05 HX of Motion Sickness Yes 11/17/24 14:05 HX of N/V After Surgery Yes 11/17/24 14:05 Non-Smoker Yes 11/17/24 14:05 Duration of Surgery greater Yes 11/17/24 14:05 than 60 minutes Number of Risk Factors 5 11/17/24 14:05 PONV Score Severe Risk 11/17/24 14:05 Height & Weight Height & Weight: Anesthesia: Height & Weight Height 5 ft 6 in 12/01/24 06:08 Weight: 93 kg 12/01/24 06:08 Body Mass Index (BMI) 33.0 12/01/24 06:08 Respiratory Assessment Respiratory Assessment - staff veterinarian: Respiratory Tract Infection Hx - staff veterinarian Hx Respiratory Tract Infection No 11/17/24 14:05 STOP Sleep Apnea STOP Sleep Apnea - staff veterinarian: STOP Sleep Apnea - staff veterinarian Hx Hypertension Yes 11/17/24 14:05 Hx Sleep Apnea No 11/17/24 14:05 CPAP BIPAP Do you snore loudly (louder No 11/17/24 14:05 than talking or can be heard Do you often feel tired/ No 11/17/24 14:05 fatigued/ sleepy during daytime? Has anyone observed you stop No 11/17/24 14:05 breathing during sleep? STOP Results Negative 11/17/24 14:05 QUESTION #5 FULL TEXT : Do you snore loudly (louder than talking or can be heard through closed doors)? 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 Specify any problems Hx of Preganancy in last 3 No 11/17/24 14:05 Months Nurse Filling Out Transfusion VLEHMAN 11/17/24 14:05 & Questions: Date: 11/17/24 11/17/24 14:05 Time: 14:15 11/17/24 14:05 Patient unable to answer at this time (ie. confused, unrespo /Reproduction History /Reproductive History - staff veterinarian: /Reproductive Hx- staff veterinarian Hx Now Gestational Age (in weeks): EDC: Hx Hx Para Hx Section SAB No 11/14/24 14:59 Active Medications Active Medications: Current Medications Generic Name Dose Route Start Last Admin Trade Name Freq PRN Reason Stop Dose Admin Acetaminophen 1,000 mg 12/01/24 07:30 12/01/24 06:16 Acetaminophen 500 Mg Tablet PO 12/01/24 07:31 1,000 mg PREOP ONE Administration Celecoxib 400 mg 12/01/24 07:30 12/01/24 06:16 Celecoxib 200 Mg Capsule PO 12/01/24 07:31 400 mg X1 ONE Administration Dexamethasone Sodium Phosphate 8 mg 12/01/24 07:30 Dexamethasone 4 Mg/Ml Vial IV 12/01/24 07:31 X1 ONE Enoxaparin Sodium 40 mg 12/01/24 07:30 12/01/24 06:16 Enoxaparin 40 Mg/0.4 Ml Syringe SC 12/01/24 07:31 40 mg X1 ONE Administration Gabapentin 600 mg 12/01/24 07:30 12/01/24 06:16 Gabapentin 600 Mg Tablet PO 12/01/24 07:31 600 mg PREOP ONE Administration Lactated Ringer's 1,000 mls @ 40 mls/hr 12/01/24 07:30 12/01/24 06:17 IV 40 mls/hr .Q25H WICHO Administration Cefazolin Sodium 2 gm/ N/A 20 mls @ 400 mls/hr 12/01/24 07:30 IV 12/01/24 07:32 PREOP ONE Magnesium Sulfate 1 gm/ 102 mls @ 408 mls/hr 12/01/24 07:30 12/01/24 06:17 Dextrose IV 12/01/24 07:44 408 mls/hr X1 ONE Administration Insulin Human Lispro 0 unit 12/01/24 07:30 12/01/24 06:18 Insulin Lispro 100 Unit/Ml Insuln.Pen SC 12/01/24 13:00 2 units Q4H PRN PRN Administration BG >/= 180, SEE PROTOCOL Protocol Ondansetron HCl 4 mg 12/01/24 07:30 Ondansetron 4 Mg/2 Ml Vial IV 12/01/24 07:31 X1 ONE Scopolamine HBr 1 patch 12/01/24 07:30 12/01/24 06:16 Scopolamine 1mg/72hr Patch TD 12/01/24 07:31 1 patch X1 ONE Administration PFSH Medical History History of ESBL Klebsiella pneumoniae infection Wears contact lenses Wears glasses Marijuana use Insulin dependent diabetes mellitus Diabetes Restless legs Gastric reflux Non-smoker Stroke GERD (gastroesophageal reflux disease) Pancreatitis Hypertension Diabetes Arthritis Home Medications ?Medication ?Instructions ?Recorded ?Last Taken ?Type duloxetine 60 mg capsule,delayed 30 mg PO DAILY 08/30/24 11/30/24 History release empagliflozin 25 mg tablet 25 mg PO QAM 08/30/24 11/28/24 History (Jardiance) eszopiclone 2 mg tablet (Lunesta) 2 mg PO QHS 08/30/24 11/30/24 History insulin lispro protamine-lispro 20 unit subcut BID 08/30/24 11/30/24 History 100 unit/mL (50-50) subcutaneous susp (Humalog Mix 50-50 Insuln U-100) mecobalamin (vitamin B12) 500 mcg 1,000 mcg PO DAILY 08/30/24 11/30/24 History chewable tablet tirzepatide 7.5 mg/0.5 mL 7.5 mg subcut QWEEK 08/30/24 11/16/24 History subcutaneous pen injector (Mounjaro) cod liver oil 5 ml PO QDAY 08/31/24 11/30/24 History olmesartan 40 mg tablet (Benicar) 20 mg PO DAILY 08/31/24 12/01/24 04:45 History rabeprazole 20 mg tablet,delayed 20 mg PO BID 08/31/24 12/01/24 04:45 History release estradiol 0.01% (0.1 mg/gram) 1 g vaginal .3XW 11/14/24 11/28/24 History vaginal cream CBD Oral (INFORMATIONAL USE 11/17/24 Unknown History ONLY-PT USES ORAL CBD) cefdinir 300 mg capsule 300 mg PO BID #5 caps 11/23/24 11/30/24 Rx secukinumab 150 mg/mL subcutaneous 150 mg subcut .1xmon 12/01/24 Unknown History syringe (Cosentyx) Held on 12/01/24. Instructions: hold for surgery 12/01/24. last dose 09/2024 Allergy/AdvReac Type Severity Reaction Status Date / Time ketoconazole Allergy Unknown Other Verified 12/01/24 06:02 Sulfa (Sulfonamide Allergy Itching Verified 12/01/24 06:02 Antibiotics) Family History Mother CAD (coronary artery disease) CVA (cerebral vascular accident) Diabetes Endometriosis Heart disease Hypertension Myocardial infarction Father CAD (coronary artery disease) CVA (cerebral vascular accident) Diabetes Heart disease Hypertension Myocardial infarction Brother CAD (coronary artery disease) CVA (cerebral vascular accident) Diabetes Hypertension Sister Diabetes Endometriosis Hypertension Other Kidney disease Seizures Surgical History History of ankle surgery H/O abdominoplasty H/O rhinoplasty Hx of breast reduction, elective History of cholecystectomy Hx of tonsillectomy Social History household members: spouse housing: house number of children: 2 current occupational status: unemployed Smoking Status: Never smoker alcohol intake: current alcohol intake frequency: holidays/special occasions only substance use type: other details: medical marijuana card seatbelt use: always do you feel safe at home: Yes additional social history: - Ashu Review of Systems (Anesthesia) ROS Narrative System reviewed and no additional complaints, except as documented.
[2024-12-01 06:50] LABS: Bedside Glucose 241 mg/dL (74-106)
--- NOTE | 2024-12-01 07:01 | PCM.HP.BLA ---
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 Required: No Is patient in pain?: Yes (having some discomfort from a bladder procedure she had done) Allergies ketoconazole Allergy (Unknown, Verified 11/01/24 15:43) OtherSulfa (Sulfonamide Antibiotics) Allergy (Verified 11/01/24 15:43) Itching Medications ?Medication ?Instructions ?Recorded ?Confirmed ?Type duloxetine 60 mg capsule,delayed 30 mg PO DAILY 08/30/24 11/01/24 History release empagliflozin 25 mg tablet 25 mg PO QAM 08/30/24 11/01/24 History (Jardiance) eszopiclone 2 mg tablet (Lunesta) 2 mg PO QHS 08/30/24 11/01/24 History insulin lispro protamine-lispro 20 unit subcut BID 08/30/24 11/01/24 History 100 unit/mL (50-50) subcutaneous susp (Humalog Mix 50-50 Insuln U-100) mecobalamin (vitamin B12) 500 mcg mcg PO DAILY 08/30/24 11/01/24 History chewable tablet tirzepatide 7.5 mg/0.5 mL 7.5 mg subcut QWEEK 08/30/24 11/01/24 History subcutaneous pen injector (Mounjaro) cod liver oil 5 ml PO QDAY 08/31/24 11/01/24 History olmesartan 40 mg tablet (Benicar) 20 mg PO DAILY 08/31/24 11/01/24 History rabeprazole 20 mg tablet,delayed 20 mg PO BID 08/31/24 11/01/24 History release ciprofloxacin HCl 500 mg tablet 500 mg PO BID 3 days #6 tabs 11/03/24 Rx (Cipro) Is last menstrual period known: No Post menopausal: Yes Patient : No : No PFSH Medical History Arthritis Diabetes Hypertension Stroke GERD (gastroesophageal reflux disease) Pancreatitis Surgical History H/O abdominoplasty H/O rhinoplasty Hx of breast reduction, elective History of cholecystectomy Hx of tonsillectomy Family History Mother CAD (coronary artery disease) CVA (cerebral vascular accident) Diabetes Endometriosis Heart disease Hypertension Myocardial infarctionFather CAD (coronary artery disease) CVA (cerebral vascular accident) Diabetes Heart disease Hypertension Myocardial infarctionBrother CAD (coronary artery disease) CVA (cerebral vascular accident) Diabetes HypertensionSister Diabetes Endometriosis HypertensionOther Kidney disease Seizures Social History household members: spouse housing: house number of children: 2 current occupational status: unemployed Smoking Status: Never smoker alcohol intake: current alcohol intake frequency: holidays/special occasions only substance use type: other details: medical marijuana card seatbelt use: always do you feel safe at home: Yes additional social history: - Ashu HPI Combo Surgery Consult Keep 20 Min Details: JESSICA MORTON is a 59 year old who presents for dicsussion of prolapse repair. she has a history of prolapse seen on last exam and discussed at annual exam, wants to proceed with a tvhbs combo case with pee. she denies any vb or abnormal discharge, feels vaginal bulge and pressure htat interferes with quality of life, has lost weight intentionally and has good contorl of diabetes. Female Reproductive History Questions: sexually active: Yes Menopausal Symptoms: No hot flashes and No night sweats History 2 Elective abortions Hx Para 2 Spontaneous abortions Hx # Term Pregnancies Ectopic pregnancies Hx # Pregnancies Multiple births # of living children 2 ROS Const Constitutional: Reports as per HPI; Denies fatigue, increased appetite, poor appetite or night sweats GI GI: Reports as per HPI; Denies abdominal pain, bloating, constipation, nausea or vomiting : Reports as per HPI, prolapse symptoms and other; Denies difficulty voiding, dysuria, hematuria, hot flashes, pelvic pain, urinary frequency, urinary incontinence, urinary urgency, vaginal discharge, vaginal dryness, vaginal odor or vaginal pruritus Exam Const General: cooperative, healthy appearing, comfortable, no acute distress, well developed and well groomed HENME Head: normal to inspection and normocephalic Ears: hearing grossly normal bilaterally and external ears normal Nose: external nose normal Face and sinus: normal facial exam Resp Effort & Inspection: normal respiratory effort General: bladder normal to palpation External Female Exam: normal external appearance, normal appearance of the urethra and no lesions Urethra: normal appearance of the urethra and normal palpation Speculum Exam - Vagina: normal appearance of the vagina, normal vaginal discharge and cyst (left clitoral sebaceous chronic cyst seen no irritation) Speculum Exam - Cervix: normal appearance of the cervix, no cervical discharge, no lesions and nontender Bimanual Exam- Vagina & Uterus: normal bimanual exam, uterine size normal, bladder normal to palpation, No tender, uterine mobility normal, consistency normal, non-tender and no cervical motion tenderness Bimanual Exam- Adnexa, other: normal adnexae, no masses, non-tender, rectocele (II), cystocele (III) and vaginal apex descent (II) Pelvic Support: cystocele (III) moderate, rectocele (II) moderate, vaginal apex descent (II) mild and other (mild widening of introitus) Skin General: no rashes or lesions noted Neuro General: patient alert, moves all extremities and no focal motor deficits Extrem General: normal to inspection and no pedal edema Psych Appearance: grossly normal Mental Status: mental status grossly normal Affect: normal affect Speech and Movement: speech and movement normal Attitude: cooperative Coding Level of Care Code Off vis,est,level 4 Diagnoses [place]-Walker grade 3 cystocele N81.10 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 I have discussed with the patient the risks, benefits, and alternatives of the procedure which include but are not limited to risks of anesthesia, bleeding, infection, possible damage to bowel, bladder, or surrounding vasculature which could lead to additional surgery to evaluate any complications. Patient agrees to procedure and wishes to proceed. ACOG/uptodate references given for additional information regarding procedure. UPDATE- I have seen the patient and performed any clinically relevant updates to the history and physical exam. Meghan Avery MD
--- NOTE | 2024-12-01 07:30 | HYST_PTH ---
PATIENT: JESSICA MORTON LOC: [facility] U#:[id number] AGE/SX: 59/F ROOM: [facility]320 RE12/01/[address]: Dr. Meghan Avery MD : [id number] BED: 1 DIS: 12/01/2024 SPEC #: [id number] RECD: 12/01/24 10:59 STATUS: SD WOOD #: [id number] GERRY: 12/01/24 07:[address]: Meghan Avery DEPT: SURGICAL PATHOLOGY RECD BY: Apple Fernando ENTERED: 12/01/24 11:48 SP TYPE: HYSTERECT OTHR DR: MD Dr. Jessy Talbert MD Tissues: Uterus, NOS Procedures: Surgery Specimen Level V HEADER OPERATION: Hysterectomy, total vaginal, bilateral salpingectomy PRE-OP DIAGNOSIS: Incomplete uterovaginal prolapse, vaginal atrophy, incontinence TISSUE SUBMITTED: Uterus, cervix, bilateral fallopian tubes MICROSCOPIC DIAGNOSIS Uterus, cervix, bilateral fallopian tubes, hysterectomy and bilateral salpingectomy: Cervix - Mild chronic inflammation and squamous metaplasia. - Focal endometriosis. Endometrium - Almost completely obliterated endometrial cavity with focal minimal area of benign endometrial epithelium. Myometrium - Diffuse adenomyosis. Bilateral fallopian tubes- No pathologic diagnosis. 12/04/2024 MICROSCOPIC DESCRIPTION Slides are reviewed. GROSS DESCRIPTION Received in fixative is one container labeled with the patient's name and designated uterus, cervix, bilateral fallopian tubes. The specimen consists of a hysterectomy specimen consisting of uterus with cervix and detached bilateral fallopian tubes. The uterus with cervix weighs 80 gm and measures 9 x 5 x 4 cm. The serosal surface is congested and glistening. The ectocervical mucosa is unremarkable. The external os is circular in contour. The endocervical canal measures 3 cm in length and the endocervical mucosa is webb glistening and unremarkable. The endometrial cavity is almost completely obliterated and measures 2.5 cm in length and <0.1 cm in width. The endometrium is webb glistening and measures <0.1 cm in thickness. Sections of the uterine wall reveal cut surfaces suspicious for adenomyosis and measures up to 2 cm in thickness. No mass lesion is identified. Fallopian tubes are not identified as right or left and one fallopian tube measures 3cm in length and 0.6cm in diameter. Fimbrial end is identified. Second fallopian tube measures 2cm in length and 0.6cm in diameter. Fimbrial end is identified. Sections reveal unremarkable cut surfaces. Also present in the container is a detached piece of fallopian tube measuring 1.5cm in length and 0.3cm in diameter. Infantry Officer sections are submitted in eight cassettes as follows: 1 - anterior cervix, 2 - posterior cervix, 3 & 4 - anterior uterine wall, 5 & 6 - posterior uterine wall, 7- one fallopian tube, entirely submitted, 8- second fallopian tube and detached piece of fallopian tube, entirely submitted. SJ: 12/01/2024 TC:5 CPT: 26552
[2024-12-01] MEDS: dexAMETHasone 4 MG/ML Vial 8 MG IV (07:40)
[2024-12-01] MEDS: Cefazolin 2 GM in Syringe 10 ML IV (07:45)
--- NOTE | 2024-12-01 07:51 | PCM.OPRPT ---
Problems Associated Problem List Diagnoses (1) [place]-Walker grade 3 cystocele: (2) Pelvic pain: Multi Select Codes Urinary/Genital Urinary/Genital CPT Codes: 77296 TVH+BS/O <250gr uterus Operative Report (Standard) Operative Information Date of Procedure: 12/01/24 Pre-Operative Diagnosis: see problem list details Post-Operative Diagnosis: same Surgery/Procedure Performed: total vaginal hysterectomy bilateral salpingectomy die sinker apprentice: Yes Electronic Funds Transfer Coordinator: Veronica Kirby Tasks completed by assistant community manager: Opening & closing and Retracting Additional assistant at surgery?: Yes Additional Personal Trainer #2: Marizol Hough Tasks completed by assistant at surgery #2: Opening & closing and Retracting Additional assistant at surgery?: No Type of Anesthesia: General RN Documented Start/Stop Times: Operation Date: 12/01/24 07:30 Case Time Into Pre-Op 12/01/24 05:47 Out of Pre-Op 12/01/24 07:28 Into Room 12/01/24 07:32 Anesthesia Start 12/01/24 07:33 Procedure Start 12/01/24 08:03 Procedure End 12/01/24 10:08 Anesthesia End 12/01/24 10:36 Out of Room 12/01/24 10:36 Into Recovery 12/01/24 10:40 Procedure Start Time: 08:03 Procedure Stop Time: 10:08 Select all DRAINS/GRAFTS/IMPLANTS that apply: Drains Drain details: tai Estimated Blood Loss: 200 Specimen collected: Yes Description of specimen(s) removed: uterus tubes Description of surgery: Patient was taken to the operating room and was placed under general anesthesia was prepped and draped in normal sterile fashion in the dorsal lithotomy position. Preoperative antibiotics and SCDs and Tai catheter was placed inside the bladder. Weighted speculum was placed in the vagina and the anterior and posterior lip of the cervix was grasped with 2 Kendrick clamps and circumferentially injected with dilute vasopressin. A circumferential incision was made with a scalpel and the posterior cul-de-sac was entered into sharply and a longneck speculum was placed. The anterior cul-de-sac was also dissected down and entered into sharply and the uterosacral ligaments were clamped cut and suture ligated bilaterally followed by the cardinal ligaments which were Clamped cut and suture ligated bilaterally with 0 Monocryl. The uterus serially descended and progressive bites were taken bilaterally up to the level of the utero-ovarian ligament bilaterally which was clamped transected and double ligated with 0 Monocryl suture and 0 Vicryl free tie. Bilateral fallopian tubes and ovaries were well visualized and noted be within normal limits and the bilateral fallopian tubes were transected across the base with a Suki clamp and removed and sutured with 0 Vicryl suture. Excellent hemostasis was noted. The vagina was closed with [id number] 0 Vicryl pop offs including the posterior and anterior peritoneum in the reapproximation. Excellent hemostasis was noted. All instruments removed from the vagina clear urine was noted at the end of the procedure and then Dr. Guidry began her portion of the procedure. Surgical Findings: prolapse, nl uterus tubes, and ovaries. Complications Complications: No
--- NOTE | 2024-12-01 08:44 | OP.PCM_ITS ---
Operative Report (Standard) Operative Information Date of Procedure: 12/01/24 Pre-Operative Diagnosis: cystocele, uterine prolapse Post-Operative Diagnosis: Same Surgery/Procedure Performed: cystoscopy with bilateral ureteral catheterization coke production heater: Yes Chief Meter Reader: Veronica Kirby Tasks completed by assistant director of plant operations: Other Additional assistant front desk manager?: No Type of Anesthesia: General RN Documented Start/Stop Times: Operation Date: 12/01/24 07:30 Case Time Into Pre-Op 12/01/24 05:47 Out of Pre-Op 12/01/24 07:28 Into Room 12/01/24 07:32 Anesthesia Start 12/01/24 07:33 Procedure Start 12/01/24 08:03 Procedure Start Time: 10:05 (for the cystoscopy and catheterization) Procedure Stop Time: 10:08 Select all DRAINS/GRAFTS/IMPLANTS that apply: Graft Graft details: Dermis Estimated Blood Loss: <1cc Specimen collected: No Description of surgery: The patient is a 59-year-old female with pelvic organ prolapse who presents for surgical intervention. Informed consent was obtained. She was taken to the operating room and placed on the operating room table. Anesthesia monitored the head, neck, airway, IV access and vital signs throughout the case. Once anesthesia was appropriately ministered she was placed into exaggerated dorsolithotomy position in Trendelenburg. She was prepped and draped in usual sterile fashion. Dr. Avery performed her portion of the procedure. At her completion, the case was turned to nh. At this time, the apex was well supported and sitting cephalad to the ischial spine and sacrospinous ligaments. The anterior and posterior defects were a grade 1. A long discussion was had with the patient's and Dr. Avery regarding the likelihood that minimal to no function would be gained by repairing such a small vaginal defect at this time. Furthermore, by repairing it today, her success rates for any future recurrence and reoperation would be lower and more difficult with higher likelihood of complication. The decision was made to allow her to heal from the hysterectomy and to reevaluate her prolapse over time, repairing it at the most appropriate time. The patient had a sterile indwelling Cummings catheter and the bladder was empty. The Cummings catheter was then removed and the cystoscope was inserted under direct visualization into the urinary bladder. The bladder mucosa was visualized in its entirety revealing no evidence of mass, erythema, ulceration, injury, laceration or foreign body. Each ureteral orifice was gently cannulated with a 5 Polish whistle-tip catheter which advanced easily to 20 cm without evidence of obstruction or injury. The cystoscope was then removed. She was awakened and taken to the recovery room in good condition. There were no complications during the procedure. Surgical Findings: The apical defect was the most significant and fixed per Dr. Avery Complications Complications: No Admit VTE Documentation VTE Present on Admission: Yes VTE Mechan Device Prophylaxis: SCD's VTE Pharm Prophylaxis ordered?: Yes
--- NOTE | 2024-12-01 08:45 | EX.PCM.DISCH ---
Discharge Instructions Diet Discharge Diet: No restrictions Activity Discharge Activity: May Not Drive (for 2 weeks), May Shower and - (no tub bathing, swimming or hot tubs) May resume sexual activity in: 8 weeks Lifting Restrictions: 5 pounds Additional Activity Instructions:: no strenuous activity, exercise, sexual activity Dressing / Incision Call your doctor if your incision/area has: Continuous Slow Oozing, Sudden Increased Bleeding, Increased Pain/ Swelling and Foul Smelling Discharge Call your doctor if you observe: Fever of 101 or Higher, Inability to urinate and Inability to have a bowel movement Follow Up Care Please Follow Up With: Meghan Avery MD When: , the office will call to make arrangements Test Results: Test results from this visit will be discussed in further detail at your follow-up appointment, if applicable. Discharge Plan Admission Attending Provider: Meghan Avery Primary Care Provider: Wander Mccullough Consulting Providers: Jessy Guidry Instructions Print Language: [place] Discharge Orders/Prescriptions Prescriptions: New oxycodone-acetaminophen 5-325 mg tablet 1 tab PO Q8H PRN (Reason: pain) 3 Days Qty: 10 0RF ondansetron 4 mg tablet,disintegrating 4 mg PO Q8H PRN (Reason: nausea and vomiting) Qty: 10 0RF Continued eszopiclone [Lunesta] 2 mg tablet 2 mg PO QHS Humalog Mix 50-50 Insuln U-100 100 unit/mL (50-50) suspension 20 unit subcut BID Jardiance 25 mg tablet 25 mg PO QAM Patient Comments: WILL STOP 2/4 Mounjaro 7.5 mg/0.5 mL pen injector 7.5 mg subcut QWEEK mecobalamin (vitamin B12) 500 mcg tablet,chewable 1,000 mcg PO DAILY cod liver oil Oil 5 ml PO QDAY rabeprazole 20 mg tablet,delayed release (DR/EC) 20 mg PO BID estradiol 0.01 % (0.1 mg/gram) cream 1 g vaginal .3XW olmesartan [Benicar] 40 mg tablet 20 mg PO DAILY duloxetine 60 mg capsule,delayed release(DR/EC) 30 mg PO DAILY Patient Comments: (DME) CBD Oral (INFORMATIONAL USE ONLY-PT USES ORAL CBD) Oil See Rx Instructions .Route Rx Instructions: As directed Cosentyx 150 mg/mL syringe 150 mg SUBCUT .1xmon Patient Comments: [NO ORIGINAL SIG] cefdinir 300 mg capsule 300 mg PO BID Qty: 5 0RF Other Ambulatory Orders: 12 Lead EKG (Routine) Timeframe: 20241123 Location: None Selected Ordered By: Dr. Kingsley Silva Referrals / Follow Up: Wander Mccullough MD [Primary Care Provider] - Disposition Disposition (needs filled in before D/C Order can be placed): Home, Self Care
[2024-12-01 10:02] LABS: Bedside Glucose 228 mg/dL (74-106)
[2024-12-01] MEDS: Vasopressin 20 UNITS/ML Vial (10:07)
--- NOTE | 2024-12-01 10:43 | PCM.POST.ANE ---
Anesthesia: Postop Eval I Current Vital Signs Temperature: 97.1 F Pulse Rate: 73 Blood Pressure: 111/63 Respiratory Rate: 16 Pulse Ox: 100 Oxygen Delivery Method: Simple Mask Oxygen Flow Rate (L/min): 8 Assessment Airway patent: Yes Spontaneous unlabored respirations: Yes Mental status: Calm nausea: No Vomiting: No Anesthesia Complication: No Fluid Hydration Crystalloid volume administer (ml): 1,200 Total IV fluid infused: 1,200 Progress Note Anesthesia document: Postop Eval 1 completed: Yes
--- NOTE | 2024-12-01 11:05 | POSTOPAN2_ITS ---
Anesthesia Postop Eval I Sum Postop Eval Completion status Anesthesia document: Postop Eval 1 completed: Yes Anesthesia Postop Eval I Summary Anesthesia Postop Eval I Summary: Anesthesia Postop Eval I: Assessment Summary Airway patent Yes 12/01/24 10:45 CLINIC [email or web address] Spontaneous unlabored Yes 12/01/24 10:45 CLINIC ADMINISTRATOR.[email or web address] respirations Mental status Calm 12/01/24 10:45 CLINIC ADMINISTRATOR.[email or web address] nausea No 12/01/24 10:45 CLINIC ADMINISTRATOR.[email or web address] Vomiting No 12/01/24 10:45 CLINIC ADMINISTRATOR.[email or web address] Anesthesia Postop Eval I: Fluid Summary Crystalloid volume administer 1,200 12/01/24 10:45 CLINIC ADMINISTRATOR.[email or web address] (ml) Colloids volume administered ( ml) Blood Product volume administered (ml) Total IV fluid infused 1,200 12/01/24 10:45 CLINIC ADMINISTRATOR.[email or web address] Anesthesia Postop Eval I: Summary Notes Anesthesia Complication No 12/01/24 10:45 CLINIC ADMINISTRATOR.[email or web address] Anesthesia Complication Comment: Post-operative progress note Anesthesia: Postop Eval II Evaluation Mental status: Awake Pain Level: 2 nausea: No Vomiting: No
--- NOTE | 2024-12-01 11:05 | PCM.POSTANE2 ---
Anesthesia Postop Eval I Sum Postop Eval Completion status Anesthesia document: Postop Eval 1 completed: Yes Anesthesia Postop Eval I Summary Anesthesia Postop Eval I Summary: Anesthesia Postop Eval I: Assessment Summary Airway patent Yes 12/01/24 10:45 PARACHUTE [email or web address] Spontaneous unlabored Yes 12/01/24 10:45 PARACHUTE [email or web address] respirations Mental status Calm 12/01/24 10:45 PARACHUTE [email or web address].[email or web address] nausea No 12/01/24 10:45 PARACHUTE MARKER.[email or web address] Vomiting No 12/01/24 10:45 PARACHUTE [email or web address] Anesthesia Postop Eval I: Fluid Summary Crystalloid volume administer 1,200 12/01/24 10:45 PARACHUTE [email or web address] (ml) Colloids volume administered ( ml) Blood Product volume administered (ml) Total IV fluid infused 1,200 12/01/24 10:45 PARACHUTE [email or web address] Anesthesia Postop Eval I: Summary Notes Anesthesia Complication No 12/01/24 10:45 PARACHUTE [email or web address] Anesthesia Complication Comment: Post-operative progress note Anesthesia: Postop Eval II Evaluation Mental status: Awake Pain Level: 2 nausea: No Vomiting: No
[2024-12-01 11:13] LABS: Absolute Lymphocyte Count 1.91 X10^3/uL (0.83-4.51); Absolute Neutrophil Count 10.3 X10^3/uL (2.0-7.7); Basophil# 0.08 X10^3/uL; Basophil% 0.6 % (0-1); Eosinophils% 0.8 % (0-5); Hematocrit 42.1 % (37-47); Hemoglobin 13.8 g/dL (12.0-15.0); Lymphocyte # 1.91 X10^3/ul (0.83-4.51); Lymphocyte % 14.8 % (19-41); Mean Corp Hgb Conc 32.8 g/dL (32-36); Mean Corpuscular Hgb 28.6 pg (27.0-32.0); Mean Corpuscular Volume 87.3 fL (81-99); Mean Platelet Vol. 9.7 fl (6.2-12.0); Monocyte# 0.45 X10^3/uL; Monocyte% 3.5 % (0-10); NRBC Flagged by Analyzer 0 % (0-5); Neutrophil # 10.26 X10^3/uL (2.7-7.7); Neutrophil % 79.8 % (47-70); Platelet Count 310 K/mm3 (150-450); RBC Distribution Width CV 13.1 % (11.6-14.6); RBC Distribution Width SD 41.5 fl (35.1-43.9); Red Blood Count 4.82 M/mm3 (4.2-5.4); White Blood Count 12.9 K/mm3 (4.4-11.0)
[2024-12-01 11:24] LABS: Anion Gap 9 (5-15); BUN 10 mg/dL (7-18); BUN/Creat Ratio 14.2 RATIO (10-20); Calcium,Total 8.6 mg/dL (8.5-10.1); Chloride 99 mmol/L (98-107); Creatinine, Serum 0.71 mg/dL (0.55-1.02); EST Glomerular Filtration Rate 89 mL/min (>60); Est Glom Filt Rate - Afr Amer 108 mL/min (>60); Glucose 282 mg/dL (74-106); Potassium 3.7 mmol/L (3.5-5.1); Sodium Level 134 mmol/L (136-145)
[2024-12-01] MEDS: Acetaminophen 325 MG Tablet 650 MG PO (13:34)
[2024-12-01] MEDS: oxyCODONE 5 MG Tablet PO (13:34)
[2024-12-01] MEDS: Docusate Sodium 100 MG Capsule 200 MG PO (13:35)
[2024-12-01] MEDS: DULoxetine Hcl 30 MG Capsule PO (13:35)
[2024-12-01] MEDS: 0.9% Saline Lock 10 ML Syringe IV ×2 (13:35→16:04)
[2024-12-01 14:08] LABS: Absolute Lymphocyte Count 1.09 X10^3/uL (0.83-4.51); Absolute Neutrophil Count 11.6 X10^3/uL (2.0-7.7); Basophil# 0.05 X10^3/uL; Basophil% 0.4 % (0-1); Eosinophil# 0.01 X10^3/uL; Eosinophils% 0.1 % (0-5); Hematocrit 43.7 % (37-47); Hemoglobin 14.2 g/dL (12.0-15.0); Lymphocyte # 1.09 X10^3/ul (0.83-4.51); Lymphocyte % 8.3 % (19-41); Mean Corp Hgb Conc 32.5 g/dL (32-36); Mean Corpuscular Hgb 28.9 pg (27.0-32.0); Monocyte# 0.29 X10^3/uL; Monocyte% 2.2 % (0-10); NRBC Flagged by Analyzer 0 % (0-5); Neutrophil # 11.55 X10^3/uL (2.7-7.7); Neutrophil % 88.5 % (47-70); Platelet Count 311 K/mm3 (150-450); RBC Distribution Width CV 13.2 % (11.6-14.6); RBC Distribution Width SD 42.9 fl (35.1-43.9); Red Blood Count 4.91 M/mm3 (4.2-5.4); White Blood Count 13.1 K/mm3 (4.4-11.0)
--- NOTE | 2024-12-01 15:12 | DCINST_ITS ---
Discharge Instructions Diet Discharge Diet: No restrictions DC O2, CPAP, BIPAP needs Home O2 Discharge instructions: No Dressing / Incision Discharge Activity: Return to Normal Activity May resume sexual activity in: 8 weeks Additional Activity Instructions:: no strenuous activity, exercise, sexual activity Dressing / Incision Call your doctor if your incision/area has: Continuous Slow Oozing, Sudden Increased Bleeding, Increased Pain/ Swelling and Foul Smelling Discharge Call your doctor if you observe: Fever of 101 or Higher, Inability to urinate and Inability to have a bowel movement Follow Up Care Please Follow Up With: Meghan Avery MD Test Results: Test results from this visit will be discussed in further detail at your follow- up appointment, if applicable. Discharge Plan Admission Admit Date/Time: 12/01/24 08:38 Attending Provider: Meghan Avery Primary Care Provider: Wander Mccullough Consulting Providers: Jessy Guidry Discharge Orders/Prescriptions Prescriptions: New oxycodone-acetaminophen 5-325 mg tablet 1 tab PO Q8H PRN (Reason: pain) 3 Days Qty: 10 0RF ondansetron 4 mg tablet,disintegrating 4 mg PO Q8H PRN (Reason: nausea and vomiting) Qty: 10 0RF Continued eszopiclone [Lunesta] 2 mg tablet 2 mg PO QHS Humalog Mix 50-50 Insuln U-100 100 unit/mL (50-50) suspension 20 unit subcut BID Jardiance 25 mg tablet 25 mg PO QAM Patient Comments: WILL STOP 2/4 Mounjaro 7.5 mg/0.5 mL pen injector 7.5 mg subcut QWEEK mecobalamin (vitamin B12) 500 mcg tablet,chewable 1,000 mcg PO DAILY cod liver oil Oil 5 ml PO QDAY rabeprazole 20 mg tablet,delayed release (DR/EC) 20 mg PO BID estradiol 0.01 % (0.1 mg/gram) cream 1 g vaginal .3XW olmesartan [Benicar] 40 mg tablet 20 mg PO DAILY duloxetine 60 mg capsule,delayed release(DR/EC) 30 mg PO DAILY Patient Comments: (DME) CBD Oral (INFORMATIONAL USE ONLY-PT USES ORAL CBD) Oil See Rx Instructions .Route Rx Instructions: As directed Cosentyx 150 mg/mL syringe 150 mg SUBCUT .1xmon Patient Comments: [NO ORIGINAL SIG] cefdinir 300 mg capsule 300 mg PO BID Qty: 5 0RF Other Ambulatory Orders: 12 Lead EKG (Routine) Timeframe: [id number] Location: None Selected Ordered By: Dr. Kingsley Silva Referrals / Follow Up: Wander Mccullough MD [Primary Care Provider] -
[2024-12-01] MEDS: Cefazolin 1 GM/50 ML BAG IV (16:04)
== END 2024-12-01 19:28 | disposition home or self-care (01) ==
LOC: SDC 11:03 → MS3 11:03
PROVIDERS: Anesthesiology; Urology; Admitting Provider Obstetrics & Gynecology; PCP Family Medicine; Referring Provider Obstetrics & Gynecology; Visit Provider Obstetrics & Gynecology
PROC: (CPT 58260; principal; 2024-12-01 07:10)
PROC: (CPT 57260; 2024-12-01 07:10)
DX: N81.2 Incomplete uterovaginal prolapse (principal); E11.9 Type 2 diabetes mellitus without complications; Z79.4 Long term (current) use of insulin; K21.9 Gastro-esophageal reflux disease without esophagitis; I10 Essential (primary) hypertension; R10.2 Pelvic and perineal pain; Z79.899 Other long term (current) drug therapy; M19.90 Unspecified osteoarthritis, unspecified site; Z79.84 Long term (current) use of oral hypoglycemic drugs; R35.1 Nocturia; N95.2 Postmenopausal atrophic vaginitis; R39.198 Other difficulties with micturition; N32.81 Overactive bladder
CPT/HCPCS: 58262; 00944; 52005; 36415; 80048; 82962; 83036; 83735; 85025; 85027; 86850; 86900; 86901; 88307; 93005; 94668; 96365; 99221; A4216; G0378; J2405; J3475

== ENCOUNTER → 2024-12-15 | Outpatient (CLI) | payer OTHER, SELFPAY ==
[2024-12-15 17:21] LABS: Glucose, Dipstick 1000 mg/dl (Normal); Ketone-Dipstick Negative (Negative); Leukocyte Esterase-Dipstick 25 /ul (Negative); Nitrite-Dipstick Negative (Negative); Occult Blood-Urine 10 /ul (Negative); Protein-Dipstick 15 mg/dl (Negative); Specific Gravity, Urine 1.015 (1.002-1.030); Urine Bilirubin Dipstick Negative (Negative); Urine Clarity Clear (Clear); Urine Urobilinogen Normal (Normal); Urine pH 6.5 (5.0 - 8.0)
[2024-12-15 17:24] LABS: Color, Urine SEE COMMENT BELOW (Yellow)
== END | disposition home or self-care (01) ==
LOC: LABSPEC 14:59
PROVIDERS: PCP Family Medicine; Referring Provider Urology; Visit Provider Urology
DX: N39.0 Urinary tract infection, site not specified (principal); R30.0 Dysuria
CPT/HCPCS: 81002; 87077; 87086; 87088

== ENCOUNTER → 2025-01-12 | Outpatient (CLI) | payer OTHER, SELFPAY ==
[2025-01-12 11:02] LABS: Absolute Lymphocyte Count 2.08 X10^3/uL (0.83-4.51); Absolute Neutrophil Count 6.4 X10^3/uL (2.0-7.7); Basophil# 0.09 X10^3/uL; Basophil% 0.9 % (0-1); Eosinophil# 0.27 X10^3/uL; Eosinophils% 2.8 % (0-5); Hematocrit 45.6 % (37-47); Lymphocyte # 2.08 X10^3/ul (0.83-4.51); Lymphocyte % 21.5 % (19-41); Mean Corp Hgb Conc 32.9 g/dL (32-36); Mean Corpuscular Hgb 28.7 pg (27.0-32.0); Mean Corpuscular Volume 87.4 fL (81-99); Monocyte# 0.74 X10^3/uL; Monocyte% 7.7 % (0-10); NRBC Flagged by Analyzer 0 % (0-5); Neutrophil # 6.44 X10^3/uL (2.7-7.7); Neutrophil % 66.6 % (47-70); Platelet Count 394 K/mm3 (150-450); RBC Distribution Width CV 13.5 % (11.6-14.6); RBC Distribution Width SD 42.9 fl (35.1-43.9); Red Blood Count 5.22 M/mm3 (4.2-5.4); White Blood Count 9.7 K/mm3 (4.4-11.0)
== END | disposition home or self-care (01) ==
PROVIDERS: PCP Family Medicine; Referring Provider Obstetrics & Gynecology; Visit Provider Obstetrics & Gynecology
DX: R53.83 Other fatigue (principal)
CPT/HCPCS: 36415; 85025

== ENCOUNTER → 2025-03-26 | Outpatient (CLI) | payer OTHER, SELFPAY ==
[2025-03-26 10:08] LABS: Hematocrit 46.3 % (37-47); Hemoglobin 15.4 g/dL (12.0-15.0); Mean Corp Hgb Conc 33.3 g/dL (32-36); Mean Corpuscular Hgb 28.8 pg (27.0-32.0); Mean Corpuscular Volume 86.5 fL (81-99); Mean Platelet Vol. 10.2 fl (6.2-12.0); Platelet Count 376 K/mm3 (150-450); RBC Distribution Width CV 13.2 % (11.6-14.6); RBC Distribution Width SD 41.8 fl (35.1-43.9); Red Blood Count 5.35 M/mm3 (4.2-5.4); White Blood Count 9.5 K/mm3 (4.4-11.0)
[2025-03-26 11:06] LABS: Microalbumin,Random Urine < 12.0 mg/L (NO RANGE EST.); Microalbumin:Creatinine Ratio UNABLE TO CALCULATE mg/g CRE
[2025-03-26 13:11] LABS: Hemoglobin A1c 8.4 % (<=5.6)
[2025-03-26 13:12] LABS: ALB/GLOB Ratio 1.3 RATIO (0.9-2.4); AST(SGOT) 20 U/L (<=31); Alanine Aminotransfer ALT/SGPT 24 U/L (<=34); Albumin, Serum 4.4 g/dL (3.4-4.8); Alkaline Phosphatase 93 U/L (35-104); Anion Gap 14 (5-15); BUN 14 mg/dL (4-19); BUN/Creat Ratio 22.6 RATIO (10-20); Calcium,Total 9.8 mg/dL (7.6-11.0); Carbon Dioxide 24.4 mmol/L (21.0-32.0); Chloride 99 mmol/L (98-108); Cholesterol 193 mg/dL (<=200); Creatinine, Serum 0.63 mg/dL (0.70-1.20); EST Glomerular Filtration Rate 101 (>60); Free T3 3.7 pg/mL (2.18-3.98); Globulin 3.3 g/dL (2.2-4.2); Glucose 195 mg/dL (70-99); High Density Lipoprotein 48 mg/dL; Low Density Lipoprotein Calc. 112 mg/dL; Potassium 4.2 mmol/L (3.3-5.1); Protein, Total 7.7 g/dL (5.9-8.4); Sodium Level 138 mmol/L (133-145); Total Bilirubin 0.67 mg/dL (0.00-1.30); Triglycerides 163 mg/dL; Very Low Density Lipoprotein 33 mg/dL (5-40); cholesterol:hdl ratio screen 3.99
== END | disposition home or self-care (01) ==
LOC: LAB 08:41
PROVIDERS: PCP Family Medicine; Referring Provider Internal Medicine Endocrinology, Diabetes & Metabolism; Visit Provider Internal Medicine Endocrinology, Diabetes & Metabolism
DX: I10 Essential (primary) hypertension (principal); E11.65 Type 2 diabetes mellitus with hyperglycemia; E55.9 Vitamin D deficiency, unspecified; E66.9 Obesity, unspecified; M79.7 Fibromyalgia
CPT/HCPCS: 36415; 80053; 80061; 82043; 82306; 82570; 83036; 84439; 84443; 84481; 85027

== ENCOUNTER → 2025-07-02 | Outpatient (CLI) | payer OTHER, SELFPAY ==
[2025-07-02 09:52] LABS: Creatinine, Urine (random) 78.60 mg/dL (28.00-217.00); Microalbumin,Random Urine < 12.0 mg/L (<20 mg/L)
[2025-07-02 10:23] LABS: AST(SGOT) 16 U/L (<=31); Alanine Aminotransfer ALT/SGPT 13 U/L (<=34); Albumin, Serum 4.2 g/dL (3.4-4.8); Alkaline Phosphatase 99 U/L (35-104); Anion Gap 11 (5-15); BUN 14 mg/dL (4-19); BUN/Creat Ratio 23.3 RATIO (10-20); Calcium,Total 9.5 mg/dL (7.6-11.0); Carbon Dioxide 25.1 mmol/L (21.0-32.0); Chloride 102 mmol/L (98-108); Cholesterol 179 mg/dL (<=200); Globulin 3.1 g/dL (2.2-4.2); Glucose 182 mg/dL (70-99); Low Density Lipoprotein Calc. 104 mg/dL; Potassium 4.7 mmol/L (3.3-5.1); Triglycerides 97 mg/dL; Very Low Density Lipoprotein 19 mg/dL (5-40); cholesterol:hdl ratio screen 3.23
[2025-07-02 10:58] LABS: Free T3 3.9 pg/mL (2.18-3.98); Vitamin D,25 Hydroxy 42.0 ng/mL (30-100)
== END | disposition home or self-care (01) ==
PROVIDERS: PCP Family Medicine; Referring Provider Internal Medicine Endocrinology, Diabetes & Metabolism; Visit Provider Internal Medicine Endocrinology, Diabetes & Metabolism
DX: I10 Essential (primary) hypertension (principal); E11.65 Type 2 diabetes mellitus with hyperglycemia; E55.9 Vitamin D deficiency, unspecified; E66.9 Obesity, unspecified; M79.7 Fibromyalgia
CPT/HCPCS: 36415; 80053; 80061; 82043; 82306; 82570; 83036; 84439; 84443; 84481